=== PATIENT | female | born 1950 | race Caucasian/White ===

== ENCOUNTER 2019-07-03 12:47 | Outpatient (RCR) | payer MEDICARE, MEDICAID, SELFPAY ==
[2019-07-03 13:08] LABS: Alanine Aminotransferase 6 U/L (0-33); Alkaline Phosphatase 106 IU/L (35-105); Anion Gap 15.1 (5-19); Aspartate Amino Transferase 16 U/L (0-32); Blood Urea Nitrogen 14 mg/dL (8-23); Calcium 9.7 mg/Dl (8.8-10.2); Carbon Dioxide 28 mmol/L (22-29); Chloride 98 mmol/L (98-107); Globulin 2.9 g/dL (1.3-4.6); Glomerular Filtration Rate 82.7 mL/min (90-130); Glucose 96 mg/dL (74-106); Potassium 4.1 mmol/L (3.5-5.1); Sodium 137 mmol/L (136-145); Total Bilirubin 0.2 mg/dL (0.15-1.2); Total Protein 6.9 g/dL (6.6-8.7)
[2019-07-03 13:12] LABS: Basophils % 0.3 %; Eosinophils # 0.5 10^3/uL (0.0-0.8); Eosinophils % 5.1 %; Hematocrit 39.4 % (37.0-47.0); Hemoglobin 12.2 g/dL (11.5-15.3); Lymphocytes # 2.7 10^3/uL (0.8-4.8); Lymphocytes % 28.2 %; Mean Corpuscular Hemoglobin 29.5 pg (28.0-34.0); Mean Corpuscular Volume 95.4 fL (81-99); Mean Platelet Volume 10.6 fL (7.4-10.4); Monocytes # 0.7 10^3/uL (0.2-0.9); Monocytes % 7.6 %; Neutrophils # 5.6 10^3/uL (1.8-7.7); Neutrophils % 58.4 %; Nucleated Red Blood Cells % 0 %; Platelet Count 294 10^3/cmm (130-400); Red Blood Count 4.13 10^6/uL (4.1-5.3); Red Cell Distribution Width 13.4 % (12.1-15.1); White Blood Count 9.5 10^3/uL (4.0-10.0)
[2019-07-04 04:23] LABS: NT Pro B Type Natriuretic Pept 206 pg/mL (0-125)
== END 2019-07-19 23:59 | disposition home or self-care (01) ==
LOC: LAB 12:47
PROVIDERS: Dermatology; Family Provider Family Medicine; Visit Provider Physician Assistant
DX: J44.1 Chronic obstructive pulmonary disease with (acute) exacerbation (principal); I50.9 Heart failure, unspecified; E58 Dietary calcium deficiency; E61.2 Magnesium deficiency; F41.8 Other specified anxiety disorders; R41.9 Unspecified symptoms and signs involving cognitive functions and awareness; R52 Pain, unspecified
CPT/HCPCS: 80053; 83880; 85025

== ENCOUNTER 2019-11-14 13:07 | Outpatient (CLI) | payer MEDICARE, MEDICAID, SELFPAY ==
--- NOTE | 2019-11-14 | MR_ITS ---
WS: [id number] MRI LUMBAR SPINE NONCONTRAST HISTORY: FRACTURE VERTEBRA COMPARISON: 06/07/2015 CT. TECHNIQUE: Sagittal and axial multisequence imaging is submitted. Thoracolumbar scoliosis. Diffuse discogenic disease throughout the cervical and thoracic spines with scoliosis. Chronic anterior wedging of T3, T4, T8 and T11. Straightening of the normal lumbar lordosis with mild S-shaped scoliosis. Acute T12 compression fract ure. There is marrow edema in the majority of the vertebral bodies with biconcave defects along the e ndplates. No marrow edema in the posterior elements. No retropulsion. Remote fractures involving L1, L2 and very minimal anterior wedging of L5. Advanced degenerative changes throughout the facet joints and disc. L4 anterolisthesis by 2 mm. Conus terminates normally at L1-2 disc level. T12-L1: No stenosis. L1-L2: Diffuse osteophytic ridging and disc bulging. No significant stenosis. L2-L3: Diffuse osteophytic ridging. Very slight retropulsion of the inferior endplate of L2. Similar to prior studies. There is ligamentum flavum hypertrophy and facet arthritis. Mild LEFT foraminal cassandra nosis. L3-L4: Mild annular disc bulging. Moderate ligamentum flavum arthritis. Mild bilateral foraminal narr owing. L4-L5: Moderate annular disc bulging and osteophytic ridging with facet disease. Mild central and sub articular recess stenosis. Asymmetric disc bulging to the RIGHT with mild contact on the inferior L4 nerve root. L5-S1: Mild annular disc bulging with a RIGHT paracentral disc protrusion contacting the thecal sac a nd probably S1. Mild RIGHT and moderate LEFT foraminal stenosis. Prominent extrarenal pelvis on the RIGHT. MR/MR lumbar spine wo con* [id number] IMPRESSION: 1. Acute compression fracture involving T12 without retropulsion. Approximatel y 10-15% loss of height. 2. Severe multilevel degenerative changes throughout the lumbar spine. Multile kapil chronic compression deformities. Most significant at L2 by approximately 50 %. Progression of the fracture since 2014 but not acute. Similar to the prior r adiograph of 12/20/2017. 3. Moderate LEFT foraminal stenosis at L5-S1 with a small RIGHT paracentral di sc protrusion slightly contacts in the RIGHT S1 nerve root. 4. Mild central and subarticular recess stenosis at L4-5.
== END 2019-11-14 13:08 | disposition home or self-care (01) ==
LOC: RADSHAW 13:12
PROVIDERS: PCP Family Medicine; Visit Provider Physician Assistant
DX: M48.54XA Collapsed vertebra, not elsewhere classified, thoracic region, initial encounter for fracture (principal); M48.07 Spinal stenosis, lumbosacral region; M48.061 Spinal stenosis, lumbar region without neurogenic claudication; M53.3 Sacrococcygeal disorders, not elsewhere classified
CPT/HCPCS: 72148

== ENCOUNTER 2020-02-13 04:51 | Emergency (ER) | payer MEDICARE, MEDICAID, SELFPAY ==
[2020-02-13 04:51] VITALS: BP 129/87; PULSE 72; RESP 14; TEMP 36.5; O2SAT 89; BMI 24.7
--- NOTE | 2020-02-13 04:55 | ECG_ITS ---
[facility] Test Date: 2020-02-13 Pat Name: Adrianna Donaldson Department: Room: Gender: Female Natural Developer: : 1950 Requested By: Armond Salamanca Order Number: [id number] Roger MD: Ary Gardner M.D. Measurements Intervals [place] Rate: 105 P: 77 VA: 155 QRS: 23 QRSD: 68 T: 55 QT: 300 QTc: 397 Interpretive Statements SINUS TACHYCARDIA LOW QRS VOLTAGE IN PRECORDIAL LEADS Compared to ECG 08/05/2018 06:24:24 Sinus rhythm no longer present Myocardial infarct finding no longer present Electronically Signed On 02-14-2020 20:34:11 CDT by Ary Gardner M.D. [id number]
--- NOTE | 2020-02-13 04:55 | XR_ITS ---
WS: [id number] Portable AP upright chest, 02/13/2020 Clinical Data: sob Comparison: Portable chest, 08/10/2018. Findings: No nodules, masses or effusions are seen. The heart is normal. The pulmonary vascularity is not increased. No pneumonia or pneumothorax is seen. The aortic arch shows minimal calcification. XR/XR chest 1V portable [id number] Impression: Atherosclerosis.
--- NOTE | 2020-02-13 04:56 | W.ED.SOB ---
HPI - SOB/Dyspnea General: Chief Complaint: Shortness of Breath/Dyspnea Stated Complaint: SOB Time Seen by Provider: 02/13/20 04:55 Source: patient and EMS Mode of arrival: EMS Limitations: no limitations History of Present Illness: HPI Narrative: 69-year-old female who is here from the senior care. Patient states she started having palpitations and dyspnea at the senior care. She does have a history of SVT along with COPD. EMS arrived her heart rate was 180 and they gave her adenosine heart rate is now 110. She states she feels much improved since her heart rate is slowed down. Patient received a breathing treatment at senior care. She is a chronic smoker and states she wears 2 L at baseline. She denies any cough or fever. She denies any chest pain. Patient is able to talk in full sentences and is in no distress currently. Associated symptoms: Reports palpitations; Deny abdominal pain, fever(s), nausea or vomiting Review of Systems Const: Denies: fever(s), chills, body aches or change in appetite Eyes: Denies: blurry vision or eye discomfort ENMT: Denies: throat pain or dental pain Card: Reports: palpitations Resp: Reports: dyspnea and wheezing GI: Denies: abdominal pain, nausea, vomiting or diarrhea : Denies: dysuria Musc: Denies: neck pain or back pain Skin/Breast: Denies: rash Neuro: Denies: headache(s) Psych: Denies: depression Jose Elias/Lymph: Denies: easy bruising All/Imm: Denies: urticaria Physical Exam Const: COMMON NORMALS: no acute distress, patient oriented x3 and healthy appearing HENMT: COMMON NORMALS: normocephalic and atraumatic HEAD & SCALP: normocephalic and atraumatic Eye: COMMON NORMALS: Equal, round and reactive pupils present and EOMs intact bilaterally PUPIL: Yes Equal, round and reactive pupils present Neck/C-Spine: COMMON NORMALS: full ROM and supple Chest: COMMONS NORMALS: normal inspection of the chest and normal palpation of entire chest wall Resp: COMMON NORMALS: normal respiratory effort, No retractions and No use of accessory muscles EFFORT & INSPECTION: Yes audible wheezes (mild) Cardio: COMMON NORMALS: regular rhythm and No murmurs present (Cardio) RATE: tachycardic RHYTHM: regular rhythm GI: COMMON NORMALS: Normal to inspection, nondistended, normoactive bowel sounds present, Soft to palpation, non-tender and no masses PALPATION: Yes Soft to palpation Extremity: COMMON NORMALS: normal to inspection and full ROM Neuro: COMMON NORMALS: patient oriented x3, moves all extremities and no focal motor deficits Psych: COMMON NORMALS: mental status grossly normal, Normal thought process present and cooperative THOUGHT PROCESS: Normal thought process present Skin: COMMON NORMALS: no rashes or lesions noted and no wounds GENERAL SKIN EXAM: no rashes or lesions noted Course Vital Signs: Vital signs: Vital Signs Temperature 97.7 F 02/13/20 04:51 Pulse Rate 95 02/13/20 05:48 Respiratory Rate 18 02/13/20 05:43 Blood Pressure 129/87 02/13/20 04:51 Pulse Oximetry 97 02/13/20 05:43 MDM - SOB/Dyspnea MDM Narrative: Medical decision making narrative: Jonathan presents here with original SVT that was converted by EMS. Patient also has a likely bronchitis. Patient has been stable here with normal blood pressures. Patient has had no respiratory distress here. Patient's pulse ox is been normal. We will place her on a 5-day steroid course along with Keflex. She is stable for discharge and return if worsening. Lab Data: Labs: Lab Results 02/13/20 02/13/20 02/13/20 Range/Units 05:00 05:00 05:00 WBC 15.3 H (4.0-10.0) 10^3/ uL RBC 4.40 (4.1-5.3) 10^6/u L Hgb 12.7 (11.5-15.3) g/dL Hct 41.7 (37.0-47.0) % MCV 94.8 (81-99) fL MCH 28.9 (28.0-34.0) pg MCHC 30.5 (30.0-36.0) g/dL RDW 13.9 (12.1-15.1) % Plt Count 375 (130-400) 10^3/c mm MPV 10.7 H (7.4-10.4) fL Neut % (Auto) 54.1 % Lymph % (Auto) 34.9 % [place] % (Auto) 6.6 % Eos % (Auto) 3.8 % Baso % (Auto) 0.3 % Neut # (Auto) 8.28 H (1.8-7.7) 10^3/u L Lymph # (Auto) 5.3 H (0.8-4.8) 10^3/u L [place] # (Auto) 1.0 H (0.2-0.9) 10^3/u L Eos # (Auto) 0.6 (0.0-0.8) 10^3/u L Baso # (Auto) 0.1 (0.0-0.1) 10^3/u L Nucleated RBC % (a uto) 0 % Nucleated RBCs # 0.0 /100WBC PT 12.50 (12.1-14.9) SECO NDS INR 0.91 (0.8-1.2) Sodium 138 (136-145) mmol/L Potassium 4.7 (3.5-5.1) mmol/L Chloride 101 (98-107) mmol/L Carbon Dioxide 28 (22-29) mmol/L Anion Gap 13.7 (5-19) BUN 15 (8-23) mg/dL Creatinine 0.9 (0.5-0.9) mg/dL GFR Calculation Not Reportable Glucose 144 H (65-115) mg/dL Calculated Osmolal ity 285 (285-295) mOsm/k g Calcium 9.7 (8.5-10.5) mg/dL Total Bilirubin 0.2 (0.15-1.2) mg/dL AST 17 (0-32) U/L ALT 6 (0-33) U/L Alkaline Phosphata se 91 (35-105) IU/L NT-Pro-B Natriuret Pep 1597 H (0-125) pg/mL Total Protein 7.1 (6.6-8.7) g/dL Albumin 3.7 (3.5-5.2) g/dL Globulin 3.4 (1.3-4.6) g/dL Imaging Data^: CXR: Attestation: I personally reviewed and interpreted this imaging study as follows: My impression: no acute abnormality EKG Data^: EKG 1: Attestation: I personally reviewed and interpreted this EKG as follows: EKG Interpretation Date: 02/13/20 EKG interpretation time: 05:04 Interpretation: sinus tach hr [address] or t wave abnormalities qrs 68 qtc 361 Discharge Plan Discharge Patient Disposition: Home Clinical Impression: COPD exacerbation, SVT (supraventricular tachycardia) Condition: Stable Prescriptions: New Keflex 500 mg capsule 500 mg PO Q6H 7 Days Qty: 28 RF: 0 prednisone 50 mg tablet 50 mg PO DAILY Qty: 5 RF: 0 Discharge Orders: Discharge Order (Routine); Ordered 02/13/20 Ordered By: Armond Salamanca Referrals: Ismael Malcolm MD [Primary Care Provider] - 1-3 days Discharge Diet: Advance as tolerated Discharge Activity: Resume usual activity Patient Instructions: Supraventricular Tachycardia (ED), Chronic Obstructive Pulmonary Disease (ED) Coding Level of Care Code ED Pouncing Machine Operator for Chg Fwd Exam Comprehensive
[2020-02-13 05:37] LABS: INR 0.91 (0.8-1.2)
[2020-02-13 05:41] LABS: Basophils # 0.1 10^3/uL (0.0-0.1); Basophils % 0.3 %; Eosinophils # 0.6 10^3/uL (0.0-0.8); Eosinophils % 3.8 %; Hematocrit 41.7 % (37.0-47.0); Hemoglobin 12.7 g/dL (11.5-15.3); Lymphocytes # 5.3 10^3/uL (0.8-4.8); Lymphocytes % 34.9 %; Mean Corpuscular HGB Conc 30.5 g/dL (30.0-36.0); Mean Corpuscular Hemoglobin 28.9 pg (28.0-34.0); Mean Corpuscular Volume 94.8 fL (81-99); Mean Platelet Volume 10.7 fL (7.4-10.4); Monocytes % 6.6 %; Neutrophils # 8.28 10^3/uL (1.8-7.7); Neutrophils % 54.1 %; Nucleated Red Blood Cells % 0 %; Platelet Count 375 10^3/cmm (130-400); Red Cell Distribution Width 13.9 % (12.1-15.1); White Blood Count 15.3 10^3/uL (4.0-10.0)
[2020-02-13 05:43] VITALS: PULSE 97; RESP 18; O2SAT 97
[2020-02-13] MEDS: ipratropium-albuterol 3 mL Neb INHALATION (05:43)
[2020-02-13 05:48] VITALS: PULSE 95
[2020-02-13 05:53] LABS: Slide Review Slide Review Perform
[2020-02-13 05:55] LABS: Alanine Aminotransferase 6 U/L (0-33); Albumin Level 3.7 g/dL (3.5-5.2); Alkaline Phosphatase 91 IU/L (35-105); Aspartate Amino Transferase 17 U/L (0-32); Blood Urea Nitrogen 15 mg/dL (8-23); Calcium 9.7 mg/dL (8.5-10.5); Carbon Dioxide 28 mmol/L (22-29); Chloride 101 mmol/L (98-107); Globulin 3.4 g/dL (1.3-4.6); Glucose 144 mg/dL (65-115); NT Pro B Type Natriuretic Pept 1597 pg/mL (0-125); Osmolality Calculated 285 mOsm/kg (285-295); Sodium 138 mmol/L (136-145); Total Bilirubin 0.2 mg/dL (0.15-1.2); Total Protein 7.1 g/dL (6.6-8.7)
[2020-02-13 05:56] LABS: Anion Gap 13.7 (5-19); Potassium 4.7 mmol/L (3.5-5.1)
--- NOTE | 2020-02-13 06:12 | PC.NURSE ---
call to longterm spoke [facility] Informed him of patients dc and went over DC instructions, prescriptions and need for follow up with PCP in 1-3 days. all questions answered at this time. personnel coordinator setting up transfer back to longterm.
[2020-02-13 06:15] VITALS: BP 112/67; PULSE 95; RESP 20; O2SAT 97
== END 2020-02-13 06:40 | disposition home or self-care (01) ==
PROVIDERS: Emergency Provider Emergency Medicine; PCP Family Medicine
DX: J44.1 Chronic obstructive pulmonary disease with (acute) exacerbation (principal); I47.1 Supraventricular tachycardia; I70.0 Atherosclerosis of aorta
CPT/HCPCS: 12345; 71045; 80053; 83880; 85025; 85610; 93005; 94640; 96374; 99282; 99284; J2930

== ENCOUNTER → 2020-07-16 11:11 | Outpatient (BNVA) | payer MEDICARE, MEDICAID, SELFPAY | PROVIDERS: PCP Family Medicine; Visit Provider Obstetrics & Gynecology | DX: N89.8 Other specified noninflammatory disorders of vagina (principal); N95.0 Postmenopausal bleeding | CPT/HCPCS: 88305 ==

== ENCOUNTER 2020-10-26 13:17 | Outpatient (CLI) | payer MEDICARE, MEDICAID, SELFPAY ==
--- NOTE | 2020-10-27 08:13 | ONC CON_ITS ---
Dr. Lopez New Patient Note Patient: Adrianna Donaldson Unit #: [id number]: 1950 Dicatated By: Jason Lopez M.D.Date of Visit: October 26, 2020 Onc MED New Patient/Consult Referring Physician: Nate Hayes Dr., M.D. Chief Complaint: Vaginal cancer. 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 She had presented with a 1 to 2-year history of vaginal bleeding. She was seen by Dr. Fernando in June 2020. She was noted to have a palpable mass along the posterior vaginal wall. She was referred to Dr. Winston harding. On 09/18/2020 she underwent examination under anesthesia with proctoscopy, cystoscopy, excisional biopsy of the vaginal mass, cervical biopsy, and D&C. The exam revealed a normal palpable cervix above the posterior inferior and left lateral vaginal lesion which measured approximately 6 cm x 7-8 cm in the craniocaudal dimension. It was noted to extend to within 2 cm of the introitus and was noted to palpably involve the rectovaginal septum, but not the rectum. The proctoscopic exam was negative to 15 cm. Cystoscopy showed no lesions in the bladder. The posterior inferior vaginal wall lesion was excised but there was noted to be a significant amount of remaining disease involving the RV septum. Pathology on the vaginal wall lesion showed invasive poorly differentiated squamous cell carcinoma. The cervical biopsy showed chronically inflamed, ulcerated cervical tissue but with benign endocervical glands. The endometrial biopsy showed just minute fragments of bland epithelial cells. Her staging MRI of the pelvis on 09/18/2020 showed an asymmetric mass within the posterior vaginal wall measuring 1.9 x 4.5 x 3.7 cm. There was no infiltration into the perirectal soft tissues. A small enlarged lymph node was noted in the left perirectal fat measuring 0.6 x 0.4 cm. Other enlarged bilateral lymph nodes were noted along the pelvic sidewall, on the right side measuring up to 2.4 x 1.4 cm and on the left side measuring 3.2 x 1.9 cm. There was associated necrosis, concerning for metastatic disease. Also noted was partially seen retroperitoneal including left periaortic lymphadenopathy measuring 1.7 x 1.2 cm and 1.4 x 1.3 cm. Left iliac chain lymphadenopathy measured 1.8 x 1.3 cm and an additional enlarged lymph node measured up to 1.1 x 1.7 cm. She is seen for further management. She has underlying COPD, and she has been residing in a half-way due to complications following a right hip fracture in 2014. She underwent ORIF at the time, but she then had multiple subsequent hospitalizations related to her COPD as well as problems associated with alcohol abuse. In 2018 she was hospitalized with C. difficile colitis, and thereafter she remained in the half-way permanently. She does have very limited activity. She ambulates with a walker for short distances. She is mostly sedentary. Her ECOG score is 3. Her appetite is okay, she does complain that the food is not good at the half-way. Her weight, though, is stable. She does not have fever or night sweats. She says she has stopped bleeding following the surgery last month. She has shortness of breath, and she is on continuous oxygen. She is still smoking. She has cough which is occasionally productive of cloudy sputum. She does not complain of chest pain. She does have episodes of SVT. She has occasional acid reflux and recently she has had constipation. Bladder function has been okay, though she sometimes has incontinence. She has joint pain in her hands and in her hips. She has chronic back pain. She also has a history of having suffered a fractured pelvis. She does not complain of headache or dizziness. She sometimes has tingling in her feet. Past Medical History: Her medical history consists of Anemia, anxiety/depression, chronic obstructive pulmonary disease, gastroesophageal reflux disease, history of alcohol abuse, hypothyroidism, osteoporosis with vertebral compression fractures, and C. difficile colitis in 2018. Past Surgical History: She underwent exam under anesthesia, proctoscopy, cystoscopy, excisional vaginal biopsy, cervical biopsy, and D&C on 09/18/2020. Her other surgical/procedural history consists of bilateral cataract excisions, tubal ligation, ORIF for right hip fracture in 2014, and ORIF for left hip fracture in 2008. Medications: W87-Aqlbht 1 (1 mg) Tablet, chewable Oral daily, Bisacodyl 1 (10 mg) Suppository Rectal daily, Calcium-Vitamin D 1 (600-200 mg - Units) Tablet Oral daily, Chelated Calcium 1 (200 mg) Tablet Oral daily, Cyclobenzaprine HCl 1 (5 mg) Tablet Oral daily, Gabapentin 1 (300 mg) Capsule Oral t.i.d., Levalbuterol HCl 1 (1.25 mg/0.5mL) Nebulization solution Inhalation daily, Metoprolol Tartrate 1 (25 mg) Tablet Oral b.i.d., Ondansetron HCl 1 (4 mg) Tablet Oral q 4 hours, Prolia (60 mg/mL) Subcutaneous Take as Directed, traMADol HCl 1 (50 mg) Tablet Oral t.i.d., Trelegy Ellipta 1 Puff(s) (of 100-62.5-25 mcg/inh) Aerosol Powder, Breath Activated Inhalation daily, Ventolin HFA 2 Puff(s) (of 108 (90 base) mcg/act) Aerosol, solution Inhalation q 6 hours Allergies: sulfonylureas Social History: Ms. Donaldson is and she is a disabled. She has a history of smoking 1 pack of cigarettes daily. She has now cut down to 8 cigarettes per day. She has a history of dring a pint of vodka daily. She quit drinking when she went into the half-way. Family History: Father of heart attack at age 34. Mother with heart failure at age 90. A sister with sepsis at age 76. Review Of Symptoms: Constitutional - Her energy is not good. She has very limited activity. She can ambulate short distances with a walker. Her appetite has been okay. Her weight is stable. She does not have fever or night sweats. ECOG score is 3, Eyes - Her vision has been getting a little worse, ENMT - No hearing loss or tinnitus. No sinus congestion/drainage. No mouth sores. No sore throat or difficulty swallowing, Hematologic/Lymphatic - She has easy bruising. She has been anemic in the past, Respiratory - She has shortness of breath. She is on continuous oxygen. She has cough. It is just occasionally productive of cloudy sputum. No pleuritic pain or hemoptysis, Cardiovascular - No angina pain. She has episodes of SVT, Gastrointestinal - No nausea or vomiting. She occasionally has acid reflux. Recently she has had constipation. She has not been aware of blood in the stool or black stools, Genitourinary (F) - She has stopped bleeding since her surgery. She has some bladder incontinence, Musculoskeletal - She has joint pain in her hands and both hips. She also has back pain, Integumentary - No skin rash or other skin changes, Neurologic - No headache or dizziness. She has tingling in her feet. No other focal neurologic symptoms, Psychiatric - She has anxiety. No depression. She has difficulty sleeping. Vital Signs: Performed on October 26, 2020 14:39: 6, 0, 22.92, 1.61 sq.m, 63.00 in, 96 %, 98 /min, 20 /min, 102/66 mm(hg), 97.9 F (LOW), and 129.4 lbs (HIGH). Physical Examination: Constitutional - She appears chronically ill, Eyes - Sclerae nonicteric. Conjunctivae clear, ENMT - Mouth is dry. There are no lesions noted in the oral cavity, Neck - No mass or thyromegaly, Hematologic/Lymphatic - No cervical, clavicular, or axillary adenopathy, Respiratory - Lungs show diminished breath sounds bilaterally. There are scattered rales. There is slight expiratory wheezing, Cardiovascular - Heart rhythm is regular. There is no murmur, gallop, or rub noted, Abdomen - Soft and non-tender. Liver and spleen are not enlarged. There is no abdominal mass or ascites noted and there is no inguinal adenopathy, Back/Spine - No spine or CVA tenderness noted, Extremities - Slight edema. Both feet are cool to touch. I am not able to palpate pedal pulses, Integumentary - No rashes. No suspicious skin lesions noted, Neurologic - No focal neurologic deficits noted. Problem List: 1. Poorly differentiated squamous cell carcinoma of the vagina. By clinical evaluation, her disease is stage at least III (T2b, N1, M0) and possibly stage IV, depending on the status of the retroperitoneal lymph nodes. 2. COPD. 3. GERD. 4. Hypothyroidism. 5. Osteoporosis with vertebral compression fractures. 6. She has a history of anemia. 7. History of alcohol abuse. 8. History of C. difficile colitis. 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 By clinical evaluation, her disease is stage at least III (T2b, N1, M0) and possibly stage IV, depending on the status of the retroperitoneal lymph nodes. She will need to complete staging with PET/CT, I will get that scheduled, subject to verification of insurance coverage. Depending on the extent of her disease, she may be appropriate for treatment with chemoradiation as per the cervical cancer regimen. However, she does have very marginal performance status and at this point I am not certain she would be able to tolerate a combined modality regimen. If her disease appears to be more advanced by PET/CT, her treatment would be palliative, and we would have to work out an appropriate regimen for her. I have discussed this with Dr. Silverman, I will plan to arrange for radiation oncology consultation with him when the PET/CT results are available. In the meantime, I will request additional laboratory studies to be done at the half-way to include CBC, comprehensive metabolic profile, and serum iron studies. Signed By: Jason Lopez M.D. <<Signature on File>>
== END 2020-10-26 13:18 | disposition home or self-care (01) ==
PROVIDERS: PCP Family Medicine; Visit Provider Internal Medicine Medical Oncology
DX: C52 Malignant neoplasm of vagina (principal); J44.9 Chronic obstructive pulmonary disease, unspecified; K21.9 Gastro-esophageal reflux disease without esophagitis; E03.9 Hypothyroidism, unspecified; M81.0 Age-related osteoporosis without current pathological fracture; F10.11 Alcohol abuse, in remission; Z87.19 Personal history of other diseases of the digestive system; F17.210 Nicotine dependence, cigarettes, uncomplicated
CPT/HCPCS: 99205

== ENCOUNTER 2020-12-10 05:59 | Outpatient (RCR) | payer MEDICARE, MEDICAID, SELFPAY ==
--- NOTE | 2020-11-25 09:14 | N.ONRAD NP_ITS ---
Radiation Oncology Consultation Patient Name: Adrianna Donaldson Date of : 1950 Date of Service: 11/25/2020 Attending Physician: Nehemiah Silverman M.D. Jonathan Donaldson was seen in consultation this afternoon at the request of Jason Lopez M.D. for consideration of palliative radiotherapy for the management of a recently diagnosed vaginal cancer, He was initially evaluated by Antwan Weaver M.D. in August for vaginal bleeding. An initial pelvic exam identified a suburethral anterior vaginal wall lesion. An exam under anesthesia with excisional vaginal biopsy performed on September 18, 2020 confirmed the vaginal wall lesion with involvement of the rectovaginal septum. The biopsy specimen from the left inferior vaginal wall diagnosed an invasive poorly differential squamous cell carcinoma (the pathology report was requested from the outside hospital and personally reviewed in [facility]). A PET/CT ordered on October 31, 2020 (independently visualized in [facility]) demonstrated the vaginal primary carcinoma (SUV 21.8), extensive hypermetabolic bilateral pelvic adenopathy (left obturator, bilateral pelvic fossa, left common iliac, and right periaortic lymphadenopathy), bilateral FDG positive pulmonary nodules, and osseous lesions in the medial left scapula, 12th thoracic vertebral body, right ilium, sacrum, and posterior left acetabulum. A [employer] report revealed PD???L1 positivity with a low tumor mutational burden. The patient was evaluated for palliative radiotherapy in the setting of significant pelvic pain. I discussed with Ms. Donaldson the role for palliative radiotherapy. I would recommend a 2-week course of radiation therapy. A CT scan will be acquired for radiotherapy planning prior to beginning treatment to delineate the gross tumor volumes. The potential toxicities of pelvic radiotherapy were reviewed. The patient has verbalized understanding would like to proceed as recommended. Her medical treatment plan has been discussed with Jason Lopez M.D. Signed by: Dr. Nehemiah Silverman 11/25/2020 9:11:59 AM
--- NOTE | 2020-11-30 | CT_ITS ---
Radiation Therapy Planning CT images; total exam DLP: 1323.54 mGy-cm MTDD
--- NOTE | 2020-12-08 11:13 | ONCRAD TMN_ITS ---
Radiation Oncology Treatment Management Note Patient Name: Adrianna Donaldson Date of : 1950 Date of Service: 12/08/2020 Attending Physician: Nehemiah Silverman M.D. Adrianna Donaldson is a 70 year old white female diagnosed recently with metastatic vaginal cancer, A PET/CT ordered on October 31, 2020 demonstrated the vaginal primary carcinoma, extensive hypermetabolic bilateral pelvic adenopathy (left obturator, bilateral pelvic fossa, left common iliac, and right periaortic lymphadenopathy), bilateral FDG positive pulmonary nodules, and osseous lesions in the medial left scapula, 12th thoracic vertebral body, right ilium, sacrum, and posterior left acetabulum. The patient presents for palliative radiotherapy in the setting of significant back and pelvic pain. The patient has received 3 Gy of a prescribed 30 Willis to T12 and the pelvic disease with a 3-dimensional conformal radiotherapy plan utilizing a wedge pair treatment field designed for the T12 metastasis and AP/PA ports to include the PET avid primary and skeletal disease. Upon review of systems, she reported improvement in pain with prescription of oxycodone. On physical examination, the patient weighed 129 lbs. Her temperature was 97 ???F with a blood pressure of 96/66 mmHg. His pulse was 75 bpm and his respiratory rate was 20. No erythema was present within the skin. Continue palliative radiotherapy as prescribed. Signed by: Dr. Nehemiah Silverman 12/08/2020 11:12:26 AM
== END 2020-12-11 01:00 | disposition home or self-care (01) ==
LOC: ONCMED 05:59
PROVIDERS: PCP Family Medicine; Visit Provider Radiology Radiation Oncology
DX: Z51.0 Encounter for antineoplastic radiation therapy (principal); C52 Malignant neoplasm of vagina; C79.51 Secondary malignant neoplasm of bone; D64.9 Anemia, unspecified; Z79.899 Other long term (current) drug therapy
CPT/HCPCS: 77290; 77295; 77300; 77334; 77387; 77412; 99205

== ENCOUNTER 2020-12-11 01:24 | Inpatient (IN) | payer MEDICARE, MEDICAID, SELFPAY ==
[2020-12-11] VITALS (68 sets, daily range): BP systolic 67–122; BP diastolic 46–77; PULSE 88–142; RESP 15–28; TEMP 36.6–36.8; O2SAT 64–100; BMI 23.0
--- NOTE | 2020-12-11 01:27 | ECG_ITS ---
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 Measurements Intervals [place] Rate: 108 P: 82 IN: 155 QRS: 73 QRSD: 82 T: 23 QT: 307 QTc: 412 Interpretive Statements SINUS TACHYCARDIA WITH OCCASIONAL VENTRICULAR PREMATURE COMPLEXES LOW QRS VOLTAGE IN PRECORDIAL LEADS [QRS DEFLECTION < 1.0 mV IN CHEST LEADS] MODERATE ST DEPRESSION [0.05+ mV ST DEPRESSION] Compared to ECG 02/13/2020 05:04:31 Ventricular premature complex(es) now present ST (T wave) deviation now present Electronically Signed On 12-11-2020 14:14:33 CDT by Ary Gardner M.D. [id number]
--- NOTE | 2020-12-11 01:27 | XRR_ITS ---
PROCEDURE INFORMATION: Exam: XR Chest Exam date and time: 12/11/2020 1:27 AM Age: 70 years old Clinical indication: Shortness of breath; Patient HX: SOB and hypoxia. History of copd and lung cancer. TECHNIQUE: Imaging protocol: XR of the chest. Views: 1 view. COMPARISON: CR XR chest 1V portable [id number] 02/13/2020 4:52 AM FINDINGS: Lungs: There is a background of emphysema, bronchiectasis and bilateral basilar parenchymal scarring. Superimposed bilateral basilar atelectasis or infiltrates cannot be excluded. Pleural spaces: Unremarkable. No pleural effusion. No pneumothorax. Heart/Mediastinum: Unremarkable. No cardiomegaly. Bones/joints: Unremarkable. Soft tissues: Soft tissue density overlies the left lateral chest wall likely representing left upper extremity soft tissues. XR/XR chest 1V portable [id number] IMPRESSION: 1. Background of emphysema and bronchiectasis 2. Strandy opacities in the lung bases bilaterally likely represents atelectasis versus parenchymal scarring. Superimposed infiltrates and pneumonitis cannot be entirely excluded.
--- NOTE | 2020-12-11 01:44 | ED_ITS ---
HPI - SOB/Dyspnea General: Chief Complaint: Shortness of Breath/Dyspnea Stated Complaint: RESP. DISTRESS Time Seen by Provider: 12/11/20 01:27 Source: patient and EMS Mode of arrival: EMS Limitations: no limitations History of Present Illness: HPI Narrative: 70-year-old female who has a history of COPD group home stay tonight she was in distress but was able to talk in full sentences. I checked her pulse ox was 55%. When EMS arrived her pulse ox was actually on her fingernail american and when they switched it her pulse ox was 90% on her typical 3 L. Patient here states she had a mild cough but denies any dyspnea currently. She denies any chest pain. Denies any vomiting or diarrhea. Associated symptoms: Deny abdominal pain, chest pain, fever(s), nausea or vomiting Review of Systems Const: Denies: fever(s), chills, body aches or change in appetite Eyes: Denies: blurry vision or eye discomfort ENMT: Denies: throat pain or dental pain Card: Denies: chest pain Resp: Reports: dyspnea GI: Denies: abdominal pain, nausea, vomiting or diarrhea : Denies: dysuria Musc: Denies: neck pain or back pain Skin/Breast: Denies: rash Neuro: Denies: headache(s) Psych: Denies: depression Jose Elias/Lymph: Denies: easy bruising All/Imm: Denies: urticaria PFSH ED PFSH: Medical History (Updated 07/18/20 @ 14:39 by Sung Fernando MD) Anemia CHF (congestive heart failure) Chronic hip pain Compression fracture of thoracic vertebra COPD (chronic obstructive pulmonary disease) GERD (gastroesophageal reflux disease) Hypothyroidism Surgical History (Updated 07/18/20 @ 14:39 by Sung Fernando MD) S/P tubal ligation Status post hip surgery Bilateral. Diagnosis: Broken hips. Social History (Updated 07/17/20 @ 14:56 by Manuel Fernando) Smoking and tobacco status: current every day smoker cigarettes Packs smoked per day: 1 [ Other cigarette details: Started age 15 ] Alcohol intake: former Former alcohol use details: Daily before group home (3-4 years ago) Physical Exam Const: COMMON NORMALS: no acute distress, patient oriented x3 and healthy appearing HENMT: COMMON NORMALS: normocephalic and atraumatic HEAD & SCALP: normocephalic and atraumatic Eye: COMMON NORMALS: Equal, round and reactive pupils present and EOMs intact bilaterally PUPIL: Yes Equal, round and reactive pupils present Neck/C-Spine: COMMON NORMALS: full ROM and supple Chest: COMMONS NORMALS: normal inspection of the chest and normal palpation of entire chest wall Resp: COMMON NORMALS: normal respiratory effort, No retractions, No use of accessory muscles and clear to auscultation bilaterally AUSCULTATION: clear to auscultation bilaterally Cardio: COMMON NORMALS: regular rate, regular rhythm and No murmurs present (Cardio) RATE: regular rate RHYTHM: regular rhythm GI: COMMON NORMALS: Normal to inspection, nondistended, normoactive bowel sounds present, Soft to palpation, non-tender and no masses PALPATION: Yes Soft to palpation Extremity: COMMON NORMALS: normal to inspection and full ROM Neuro: COMMON NORMALS: patient oriented x3, moves all extremities and no focal motor deficits Psych: COMMON NORMALS: mental status grossly normal, Normal thought process present and cooperative THOUGHT PROCESS: Normal thought process present Skin: COMMON NORMALS: no rashes or lesions noted and no wounds GENERAL SKIN EXAM: no rashes or lesions noted Course Vital Signs: Vital signs: Vital Signs Temperature 97.8 F 12/11/20 01:28 Pulse Rate 95 12/11/20 02:15 Respiratory Rate 19 H 12/11/20 02:07 Blood Pressure 91/56 12/11/20 01:54 Pulse Oximetry 98 12/11/20 02:07 MDM - SOB/Dyspnea MDM Narrative: Medical decision making narrative: Jonathan presents here with cough dyspnea. She is requiring 3 to 4 L of oxygen here and is on 2 L oxygen at group home. Her BNP is quite elevated could be in a CHF exacerbation versus pneumonia. Per lab work she does appear slightly dehydrated as well with an elevated creatinine. I spoke the hospitalist will admit to the cardiac stepdown. Lab Data: Labs: Lab Results 12/11/20 12/11/20 12/11/20 Range/Units 01:37 01:37 01:37 WBC 11.4 H (4.0-10.0) 10^3/ uL RBC 3.74 L (4.1-5.3) 10^6/u L Hgb 10.4 L (11.5-15.3) g/dL Hct 35.1 L (37.0-47.0) % MCV 93.9 (81-99) fL MCH 27.8 L (28.0-34.0) pg MCHC 29.6 L (30.0-36.0) g/dL RDW 15.1 (12.1-15.1) % Plt Count 264 (130-400) 10^3/c mm MPV 10.8 H (7.4-10.4) fL Neut % (Auto) 81.5 % Lymph % (Auto) 9.4 % [place] % (Auto) 7.2 % Eos % (Auto) 0.5 % Baso % (Auto) 0.3 % Neut # (Auto) 9.31 H (1.8-7.7) 10^3/u L Lymph # (Auto) 1.1 (0.8-4.8) 10^3/u L [place] # (Auto) 0.8 (0.2-0.9) 10^3/u L Eos # (Auto) 0.1 (0.0-0.8) 10^3/u L Baso # (Auto) 0.0 (0.0-0.1) 10^3/u L Nucleated RBC % (a uto) 0 % Nucleated RBCs # 0.0 /100WBC Sodium 132 L (136-145) mmol/L Potassium 5.8 H (3.5-5.1) mmol/L Chloride 88 L (98-107) mmol/L Carbon Dioxide 29 (22-29) mmol/L Anion Gap 20.8 H (5-19) BUN 34 H (8-23) mg/dL Creatinine 2.1 H (0.5-0.9) mg/dL GFR Calculation Not Reportable Glucose 101 (65-115) mg/dL Calculated Osmolal ity 282 L (285-295) mOsm/k g Lactate 3.5 H (0.5-2.2) mmol/L Calcium 9.9 (8.5-10.5) mg/dL Total Bilirubin 0.3 (0.15-1.2) mg/dL AST 38 H (0-32) U/L ALT < 5 (0-33) U/L Alkaline Phosphata se 90 (35-105) IU/L NT-Pro-B Natriuret Pep 33950 H (0-125) pg/mL Total Protein 7.4 (6.6-8.7) g/dL Albumin 3.4 L (3.5-5.2) g/dL Globulin 4.0 (1.3-4.6) g/dL Imaging Data^: CXR: Attestation: I personally reviewed and interpreted this imaging study as follows: Radiologist's impression: [address] [address] XRay Report Signed Patient: Adrianna Donaldson Unit #: [id number] : 1950 Age/Sex: 70 / F ADM Date: 12/11/20 Loc: ER Room/Bed: Attending Dr: Ordering Provider/Ordering MD: Armond Salamanca MD Date of Service: 12/11/20 Procedure(s): XR chest 1V portable [id number] Accession Number(s): [id number] Report Number: [id number] PROCEDURE INFORMATION: Exam: XR Chest Exam date and time: 12/11/2020 1:27 AM Age: 70 years old Clinical indication: Shortness of breath; Patient HX: SOB and hypoxia. History of copd and lung cancer. TECHNIQUE: Imaging protocol: XR of the chest. Views: 1 view. COMPARISON: CR XR chest 1V portable [id number] 02/13/2020 4:52 AM FINDINGS: Lungs: There is a background of emphysema, bronchiectasis and bilateral basilar parenchymal scarring. Superimposed bilateral basilar atelectasis or infiltrates cannot be excluded. Pleural spaces: Unremarkable. No pleural effusion. No pneumothorax. Heart/Mediastinum: Unremarkable. No cardiomegaly. Bones/joints: Unremarkable. Soft tissues: Soft tissue density overlies the left lateral chest wall likely representing left upper extremity soft tissues. XR/XR chest 1V portable [id number] IMPRESSION: 1. Background of emphysema and bronchiectasis 2. Strandy opacities in the lung bases bilaterally likely represents atelectasis versus parenchymal scarring. Superimposed infiltrates and pneumonitis cannot be entirely excluded. EKG Data^: EKG 1: Attestation: I personally reviewed and interpreted this EKG as follows: EKG Interpretation Date: 12/11/20 EKG interpretation time: 01:48 Interpretation: nsr hr [address] or t wave abnormalities qrs 67 qtc 357 Discharge Plan Discharge Prescriptions: No Action bisacodyl 10 mg suppository 10 mg GA DAILY PRNRF: 0 magnesium hydroxide [Milk of Magnesia] 400 mg/5 mL suspension 30 ml PO DAILY PRNRF: 0 levalbuterol HCl 1.25 mg/3 mL solution for nebulization 1.25 mg inhalation Q6H PRNRF: 0 albuterol sulfate [Ventolin HFA] 90 mcg/actuation HFA aerosol inhaler 2 puff inhalation Q6H RF: 0 calcium carbonate [Antacid (calcium carbonate)] 200 mg calcium (500 mg) tablet,chewable 400 mg PO Q4H PRNRF: 0 ondansetron HCl [Zofran] 4 mg tablet 4 mg PO Q8H PRNRF: 0 acetaminophen [Tylenol] 325 mg capsule 650 mg PO Q6H PRNRF: 0 cyclobenzaprine 5 mg tablet 5 mg PO Q8H PRNRF: 0 Prolia 60 mg/mL syringe 60 mg SUBCUT .COMPLEX RF: 0 multivitamin Tablet 1 tab PO DAILY RF: 0 Trelegy Ellipta 100-62.5-25 mcg blister with device 1 inh inhalation DAILY RF: 0 cyanocobalamin (vitamin B-12) 1,000 mcg capsule 1,000 mcg PO DAILY RF: 0 gabapentin 300 mg capsule 300 mg PO TID RF: 0 calcium carbonate-vitamin D3 600 mg(1,500mg) -400 unit capsule 2 cap PO DAILY RF: 0 metoprolol tartrate 25 mg tablet 25 mg PO BID RF: 0 Coding Level of Care Code ED Radio Division Lieutenant for Chg Fwd Exam Comprehensive
[2020-12-11 01:49] LABS: Basophils % 0.3 %; Eosinophils # 0.1 10^3/uL (0.0-0.8); Eosinophils % 0.5 %; Hematocrit 35.1 % (37.0-47.0); Hemoglobin 10.4 g/dL (11.5-15.3); Lymphocytes # 1.1 10^3/uL (0.8-4.8); Lymphocytes % 9.4 %; Mean Corpuscular HGB Conc 29.6 g/dL (30.0-36.0); Mean Corpuscular Hemoglobin 27.8 pg (28.0-34.0); Mean Corpuscular Volume 93.9 fL (81-99); Mean Platelet Volume 10.8 fL (7.4-10.4); Monocytes # 0.8 10^3/uL (0.2-0.9); Monocytes % 7.2 %; Neutrophils # 9.31 10^3/uL (1.8-7.7); Neutrophils % 81.5 %; Nucleated Red Blood Cells % 0 %; Platelet Count 264 10^3/cmm (130-400); Red Blood Count 3.74 10^6/uL (4.1-5.3); Red Cell Distribution Width 15.1 % (12.1-15.1); White Blood Count 11.4 10^3/uL (4.0-10.0)
[2020-12-11] MEDS: sodium chloride 0.9% 1,000 ML 999 ML IV (01:56)
[2020-12-11] MEDS: ipratropium-albuterol 3 mL Neb INHALATION ×4 (02:07→20:02)
[2020-12-11 02:09] LABS: Lactate (Lactic Acid level) 3.5 mmol/L (0.5-2.2)
[2020-12-11 02:19] LABS: Alanine Aminotransferase < 5 U/L (0-33); Albumin Level 3.4 g/dL (3.5-5.2); Alkaline Phosphatase 90 IU/L (35-105); Anion Gap 20.8 (5-19); Aspartate Amino Transferase 38 U/L (0-32); Blood Urea Nitrogen 34 mg/dL (8-23); Calcium 9.9 mg/dL (8.5-10.5); Carbon Dioxide 29 mmol/L (22-29); Chloride 88 mmol/L (98-107); Glucose 101 mg/dL (65-115); NT Pro B Type Natriuretic Pept 21714 pg/mL (0-125); Osmolality Calculated 282 mOsm/kg (285-295); Potassium 5.8 mmol/L (3.5-5.1); Sodium 132 mmol/L (136-145); Total Bilirubin 0.3 mg/dL (0.15-1.2); Total Protein 7.4 g/dL (6.6-8.7)
--- NOTE | 2020-12-11 03:01 | P.HP_ITS ---
Providers/Chief Complaint Primary Care Provider: Ismael Malcolm MD Chief Complaint: RESP. 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 Patient is stating that around 6 PM she start experiencing shortness of breath which she is describing as labored breathing, she is denying fever, chest pain, diarrhea. She is endorsing dysuria, productive cough and chest congestion. She uses 2 L of oxygen [id number]. She is denying rhinorrhea, runny eyes. Pulse ox at the half-way was showing O2 saturation around 50% however nail greenlandic was not removed. She was sent to the ER for further evaluation. In the ER nail greenlandic was removed O2 saturation was above 90% on 2 L nasal cannula, she had mild leukocytosis with tachycardia and high lactic acid she was given ceftriaxone and azithromycin for possible pneumonia and 2 L normal saline for hypotension her systolic blood pressure was in the low 90s. Requested urinalysis and CT chest abdomen pelvis with contrast along procalcitonin and D- dimer Review of Systems Const: Reports: chills, body aches and fatigue Eyes: Denies: change in vision ENMT: Denies: throat pain Card: Reports: dyspnea on exertion Resp: Reports: dyspnea and productive cough GI: Denies: abdominal pain : Reports: difficulty voiding and dysuria; Denies: flank pain Musc: Denies: neck pain Skin/Breast: Denies: rash Neuro: Denies: headache(s) Psych: Reports: depression; Denies: anxiety Endo: Denies: polyuria Jose Elias/Lymph: Denies: easy bruising All/Imm: Denies: urticaria Medications/Allergies Home Medications Medication Instructions Recorded Confirmed Last Taken Type acetaminophen 325 mg capsule 650 mg PO Q6H PRN cap 07/16/20 07/16/20 Unknown History albuterol sulfate 90 mcg/actuation 2 puff INHALATION Q6H 07/16/20 07/16/20 Unknown History aerosol inhaler bisacodyl 10 mg rectal suppository 10 mg DC DAILY PRN 07/16/20 07/16/20 Unknown History calcium carbonate 200 mg calcium 400 mg PO Q4H PRN tab 07/16/20 07/16/20 Unknown History (500 mg) chewable tablet calcium carbonate-vitamin D3 600 2 cap PO DAILY cap 07/16/20 07/16/20 Unknown History mg (1,500 mg)-400 unit capsule cyanocobalamin (vitamin B-12) 1,000 mcg PO DAILY 07/16/20 07/16/20 Unknown History 1,000 mcg capsule cyclobenzaprine 5 mg tablet 5 mg PO Q8H PRN tab 07/16/20 07/16/20 Unknown History denosumab 60 mg/mL subcutaneous 60 mg SUBCUT .COMPLEX ml 07/16/20 07/16/20 Unknown History syringe fluticasone fur. 100 mcg-umeclid 1 inh INHALATION DAILY 07/16/20 07/16/20 Unknown History 62.5 mcg-vilant 25 mcg inhalat.powder gabapentin 300 mg capsule 300 mg PO TID 07/16/20 07/16/20 Unknown History levalbuterol HCl 1.25 mg/3 mL 1.25 mg INHALATION Q6H PRN ml 07/16/20 07/16/20 Unknown History solution for nebulization magnesium hydroxide 400 mg/5 mL 30 ml PO DAILY PRN ml 07/16/20 07/16/20 Unknown History oral suspension metoprolol tartrate 25 mg tablet 25 mg PO BID 07/16/20 07/16/20 Unknown History multivitamin 1 tab PO DAILY 07/16/20 07/16/20 Unknown History ondansetron HCl 4 mg tablet 4 mg PO Q8H PRN 07/16/20 07/16/20 Unknown History Allergies Allergy/AdvReac Type Severity Reaction Status Date / Time Sulfa (Sulfonamide Allergy ALGY-Rash Verified 07/16/20 10:18 Antibiotics) PFSH Acute PFSH: Medical History Anemia CHF (congestive heart failure) Chronic hip pain Compression fracture of thoracic vertebra COPD (chronic obstructive pulmonary disease) GERD (gastroesophageal reflux disease) Hypothyroidism Vaginal cancer Surgical History S/P tubal ligation Status post hip surgery Bilateral. Diagnosis: Broken hips. Social History Smoking and tobacco status: current every day smoker cigarettes Packs smoked per day: 1 [ Other cigarette details: Started age 15 ] Alcohol intake: former Former alcohol use details: Daily before half-way (3-4 years ago) Vitals/I&O/Wt Last Vital Signs Temp 97.8 F 12/11/20 01:28 Pulse 95 12/11/20 02:15 Resp 19 H 12/11/20 02:07 BP 91/56 12/11/20 01:54 Pulse Ox 98 12/11/20 02:07 Weight last 48 hrs Weight 58.967 kg Physical Exam Narrative: EXAM NARRATIVE: elderly female who appears stated age, clinically looks dehydrated Laying comfortably in her bed saturating well on 2 L nasal cannula S1, S2 sinus rhythm no murmur appreciated Abdomen soft nontender bowel sound present Lower extremity no edema gangrene or ulcer Awake alert oriented x3 GCS 15 no neurological deficits, EOMI, PERRLA No joint swelling Bilateral breath sounds without adventitious rhonchi or crackles, diminished airflow Appropriate mood and affect Cooperative and pleasant during my evaluation Data : 12/11/20 01:37 12/11/20 01:37 A&P Assessment and plan (1) Sepsis: Status: Acute (2) UTI (urinary tract infection): Status: Acute (3) ONEL (acute kidney injury): Status: Acute (4) Hyperkalemia: Status: Acute Additional A&P Information Sepsis Criteria met with tachycardia, leukocytosis and lactic acidemia Patient does have chest congestion, chest imaging is revealing atelectasis, requested procalcitonin and urinalysis, patient is endorsing dysuria CT abdomen/pelvis is showing perinephric stranding, I would keep her on ceftriaxone for now Continue normal saline, received 2 L of normal saline in the ER current blood pressure 91/59 mmHg Currently saturating 92% on 2 L nasal cannula Her D-dimer would not be considered high compared to her age and history of vaginal cancer, she is saturating well at baseline oxygen supplementation, however initially EKG showed sinus tachycardia, request VQ scan DuoNeb every 4 as needed Requested blood and urine culture ONEL with hyperkalemia Clinically looks dehydrated continue normal saline fluid resuscitation, hold nephrotoxic agents, Considering high creatinine I would also hold cyclobenzaprine She has high BNP however clinically looks extremely dehydrated chest x-ray does not show fluid overload signs Sinus rhythm on EKG We will give her calcium gluconate and Kayexalate, insulin and D50 Full code Cardiac diet DVT prophylaxis Heparin Attestations Medical Necessity Statement*: Anticipating stay in the hospital cross more than 2 midnights for sepsis, UTI Time Spent in Patient Care: 35mins Coding Level of Care Code Acute Seam Rubber for Chg Fwd Diagnoses Sepsis A41.9 UTI (urinary tract infection) N39.0 ONEL (acute kidney injury) N17.9 Hyperkalemia E87.5
--- NOTE | 2020-12-11 03:20 | CTR_ITS ---
PROCEDURE INFORMATION: Exam: CT Chest Without Contrast; Diagnostic Exam date and time: 12/11/2020 3:20 AM Age: 70 years old Clinical indication: Shortness of breath; Prior surgery; Surgery type: Tubal ligation. Bilat hips. ; Patient HX: Hypoxia and dysuria. History of chf. No contrast given due to creatinine over 2.0. ; Additional info: Hypoxia/dysuria TECHNIQUE: Imaging protocol: Diagnostic computed tomography of the chest without contrast. Radiation optimization: All CT scans at this facility use at least one of these dose optimization techniques: automated exposure control; mA and/or kV adjustment per patient size (includes targeted exams where dose is matched to clinical indication); or iterative reconstruction. COMPARISON: CR (CHEST, ) 12/11/2020 1:25 AM RADIATION DOSE METRICS: Total DLP (mGy-cm): 1310.03 FINDINGS: Lungs: There are calcifications of the tracheobronchial tree. Numerous pulmonary nodularities are seen within the hemithoraces bilaterally, most numerous within the upper lobes measuring up to 8 5 mm. There are hazy opacities present in the right lower lobe posteriorly possibly representing atelectasis although a right basilar infiltrate and pneumonia cannot be excluded. Pleural spaces: Unremarkable. No pneumothorax. No pleural effusion. Heart: Calcifications are seen in the coronary arteries. Mediastinal space: There is a small hiatal hernia present. Aorta: Unremarkable. No aortic aneurysm. Great vessels off aortic arch: Calcifications are seen within the great vessels and thoracic aorta. Lymph nodes: There are small mediastinal lymph nodes seen that are below CT criteria for lymphadenopathy. The largest is seen in the aortopulmonic region measuring approximately 8.7 mm transverse dimension. Bones/joints: There is moderate compression of the T12 vertebral body. Soft tissues: Unremarkable. IMPRESSION: 1. There are small mediastinal lymph nodes seen that are below CT criteria for lymphadenopathy. 2. Small hiatal hernia 3. Numerous pulmonary nodularities are present predominately within the upper lobes bilaterally, the largest measuring up to 8.5 mm. For patients at low risk (minimal or absent history of smoking and of other known risk factors), recommend CT Chest at 3-6 months, then consider CT Chest at 18-24 months. For patients at high risk (history of smoking or of other known risk factors), recommend CT Chest at 3-6 months, then CT Chest at 18-24 months. (Reference: Cristina) 4. Hazy opacities in the right lower lobe may represent atelectasis although a right basilar infiltrate and pneumonia cannot be entirely excluded. REFERENCES: Cristina Collins et al. Guidelines for Management of Incidental Pulmonary Nodules Detected on CT Images: From the Fleischner Society 2017. Radiology. 2017;284(1):228-243. PROCEDURE INFORMATION: Exam: CT Abdomen And Pelvis Without Contrast Exam date and time: 12/11/2020 3:20 AM Age: 70 years old Clinical indication: Shortness of breath; Prior surgery; Surgery type: Tubal ligation. Bilat hips. ; Patient HX: Hypoxia and dysuria. History of chf. No contrast given due to creatinine over 2.0. ; Additional info: Hypoxia/dysuria TECHNIQUE: Imaging protocol: Computed tomography of the abdomen and pelvis without contrast. Radiation optimization: All CT scans at this facility use at least one of these dose optimization techniques: automated exposure control; mA and/or kV adjustment per patient size (includes targeted exams where dose is matched to clinical indication); or iterative reconstruction. COMPARISON: CR (CHEST, ) 12/11/2020 1:25 AM RADIATION DOSE METRICS: Total DLP (mGy-cm): 1310.03 FINDINGS: Liver: Normal. No mass. Gallbladder and bile ducts: Hyperdensities are seen within the gallbladder lumen compatible with small gallstones. Pancreas: Normal. No ductal dilation. Spleen: Normal. No splenomegaly. Adrenal glands: Normal. No mass. Kidneys and ureters: Strandy opacities are seen in the perinephric fascia bilaterally most probably representing chronic scarring. Stomach and bowel: Unremarkable. No obstruction. No mucosal thickening. Appendix: No evidence of appendicitis. Intraperitoneal space: Unremarkable. No free air. No significant fluid collection. Vasculature: There are calcifications of the abdominal aorta, iliac and femoral arteries bilaterally. Lymph nodes: Unremarkable. No enlarged lymph nodes. Urinary bladder: Unremarkable as visualized. Reproductive: Unremarkable as visualized. Bones/joints: Status post gamma nailing of right hip and placement of a compression screw and buttress plate in the proximal left femur. There are compression fractures L1-L3 vertebral bodies, most severe within the L2 vertebral body. Soft tissues: Unremarkable. CT/CT chest abd pel wo con IMPRESSION: 1. Multiple gallstones without evidence of cholecystitis 2. There are no acute abdominal findings Radiation Dose CTDIVOL = (mGy): DLP = 1310.03~1310.03 (mGy-cm)
[2020-12-11 03:44] LABS: D Dimer 0.82 ug/mIFEU (0-0.59)
[2020-12-11 03:45] LABS: Procalcitonin 0.57 ng/mL (0-0.5)
--- NOTE | 2020-12-11 04:38 | NM_ITS ---
WS: [id number] NUCLEAR MEDICINE VENTILATION/PERFUSION LUNG SCAN HISTORY: High D-dimer, hypoxia COMPARISON: Chest CT 12/11/2020 TECHNIQUE: Ventilation: 32.4 mCi of Technetium 99 DTPA aerosol inhaled. Perfusion: 4.7 mCi of technetium 99m MAA IV. Severe heterogeneity on the ventilatory portion of the examination. Multiple foci of deposition and d eposition also within the upper GI tract. Slightly better perfusion as compared to the ventilatory po rtion. There are multiple filling defects. Some of these filling defects are larger and some are smal ler than the matching areas on the ventilatory portion. This is essentially nondiagnostic examination due to patient's underlying lung disease. NM/NM pul vent and perfus* [id number] IMPRESSION: Indeterminate and essentially nondiagnostic evaluation for pulmonary embolism b y VQ scan. Nondiagnostic evaluation is due to significant underlying chronic geovanna ng disease. There are multiple areas of matched and minimally unmatched defects . Majority of these defects are matched and related to emphysema.
--- NOTE | 2020-12-11 04:38 | USCV_ITS ---
Adrianna Donaldson Age: 70 Gender: F : 1950 Exam Date: 12/11/2020 14:04 Ordering Phys: Nolvia Katz MD Technologist: Gilberto Melgar Exam Location: [facility] [place] Indication: evaluate EF, post code, copd BP: / HR: Rhythm: Sinus Technical Quality: non diagnostic, no windows MEASUREMENTS (Male / Female) Normal Values FINDINGS Left Ventricle Technically very difficult study. Could not properly visualize the ventricle. Right Ventricle Right Atrium Left Atrium Mitral Valve Aortic Valve Tricuspid Valve Pulmonic Valve Pericardium Aorta CONCLUSIONS Technically difficult study Could not properly visualize the left ventricle to estimate the ejection fraction. Consider contrast echo Dr Aj Jaramillo MD FAC (Electronically Signed) Final Date: 11 December 2020 16:47 S
[2020-12-11] MEDS: cefTRIAXone 1,000 MG in sodium chloride 0.9% (plus) 50 ML 100 MG IV ×2 (05:21→08:54)
[2020-12-11] MEDS: heparin 5,000 unit/mL INJ 1 mL 5000 UNIT SUBCUT ×3 (05:23→20:47)
[2020-12-11] MEDS: sodium chloride 0.9% 1,000 ML 100 ML IV ×2 (05:23→08:51)
--- NOTE | 2020-12-11 08:08 | ANES.PROC ---
Anesthesia Procedures Procedure/Date: 12/11/20 Other Information: Code Blue in progress. IUDV X 1 with + ETCO2 et BBS =. Dr Morales present and compressions being administered
[2020-12-11] MEDS: midazolam 1 mg/mL INJ 2 mL 2 MG IVP (08:27)
[2020-12-11 08:43] LABS: ABG PH Result 7.27 (7.35-7.45); Alveolar-Arterial Oxygen Gradi 16.5 mmHg (5-10); Arterial Blood Gas Hematocrit 29.4 % (37-47); Base Excess ABG 5.2 mmol/L (-2.0-2.0); Blood Gas Allen Test Pos; Blood Gas Sample Site Brachial, right; Blood Gas Sample Type Arterial; Carboxyhemoglobin 0.4 %THgb (0.4-20.1); HCO3 ABG 33.6 mmol/L (22-26); HGB O2 Sat 99.3 % (95-100); Ionized Calcium Level - ABG 1.5 mmol/L (1.1-1.4); Methemoglobin 0.5 % (0.4-1.5); Oxygen Device VENT; Oxygen Saturation ABG > 100.0; Potassium Level - ABG 5.1 mmol/L (3.5-5.0); Total Hemoglobin 9.6 g/dL (12-16)
[2020-12-11] MEDS: midazolam 1 mg/mL INJ 2 mL 2 MG (08:47)
[2020-12-11 08:48] LABS: ABG PCO2 73.7 mmHg (35-45)
[2020-12-11 09:07] LABS: Basophils % 0.2 %; Hematocrit 33.1 % (37.0-47.0); Hemoglobin 9.6 g/dL (11.5-15.3); Lymphocytes # 0.5 10^3/uL (0.8-4.8); Lymphocytes % 2.8 %; Mean Corpuscular Volume 96.5 fL (81-99); Mean Platelet Volume 10.4 fL (7.4-10.4); Monocytes # 0.2 10^3/uL (0.2-0.9); Monocytes % 1.2 %; Neutrophils # 15.85 10^3/uL (1.8-7.7); Neutrophils % 94.2 %; Nucleated Red Blood Cells % 0 %; Platelet Count 221 10^3/cmm (130-400); Red Blood Count 3.43 10^6/uL (4.1-5.3); Red Cell Distribution Width 15.3 % (12.1-15.1); White Blood Count 16.8 10^3/uL (4.0-10.0)
[2020-12-11 09:27] LABS: Alanine Aminotransferase 11 U/L (0-33); Albumin Level 2.9 g/dL (3.5-5.2); Alkaline Phosphatase 82 IU/L (35-105); Aspartate Amino Transferase 40 U/L (0-32); Blood Urea Nitrogen 31 mg/dL (8-23); Calcium 10.4 mg/dL (8.5-10.5); Carbon Dioxide 26 mmol/L (22-29); Chloride 91 mmol/L (98-107); Globulin 3.7 g/dL (1.3-4.6); Glucose 197 mg/dL (65-115); Magnesium 1.8 mg/dL (1.7-2.3); Osmolality Calculated 288 mOsm/kg (285-295); Sodium 133 mmol/L (136-145); Total Bilirubin 0.2 mg/dL (0.15-1.2); Total Protein 6.6 g/dL (6.6-8.7)
[2020-12-11 09:29] LABS: Anion Gap 21.3 (5-19); Potassium 5.3 mmol/L (3.5-5.1)
--- NOTE | 2020-12-11 11:53 | PC.NURSE ---
received from ist floor post code this am around 0800 monitor vs intubated and on vent at this time fentynl and versed infusing and titrated for sedation
[2020-12-11 13:03] LABS: Add Urine Microscopic? YES; Bilirubin Urine Neg (Negative); Blood Urine 3+ (Negative); Glucose Urine UA Trace (Normal); Ketones Urine 1+ (Negative); Leukocyte Esterase Urine Negative (Negative); Nitrate Urine Negative (Negative); Protein Urine Trace (Negative); Specific Gravity, Urine 1.025 (1.005-1.030); Urine Appearance Clear (CLEAR); Urine Color Yellow (Yellow); Urobilinogen Urine Norm (Negative); pH Urine 5 (5-7)
--- NOTE | 2020-12-11 13:04 | PM.PN ---
Subjective Subjective: Interval history: Patient experienced sudden cardiac arrest, while undergoing VQ scan.During the code she received 2 epi, 1 amp of bicarb.It Was a PEA arrest.High-quality chest compressions was done.Patient was intubated during the code. ROSC was achieved. Postcode she was on Versed and fentanyl, as well as Levophed as she was Hypotensive. Post code Labs were ordered.( CBC, CMP, Blood culture,ABG, EKG, Troponin ) Abx Coverage was broadened. Medications: Reviewed: Yes Vitals/I&O/Wt Last Vital Signs Temp 97.8 F 12/11/20 04:29 Pulse 101 H 12/11/20 11:00 Resp 15 12/11/20 12:04 BP 80/58 12/11/20 11:00 Pulse Ox 98 12/11/20 12:04 12/10/20 12/11/20 12/11/20 22:59 06:59 14:59 Intake Total 1000 / 1000 446.667 / 446.667 Balance 1000 / 1000 446.667 / 446.667 Weight last 48 hrs Weight 58.967 kg Physical Exam Narrative: EXAM NARRATIVE: Currently intubated and sedated,off sedation her GCS is 8T HENMT: COMMON NORMALS: normocephalic and atraumatic HEAD & SCALP: normocephalic and atraumatic Resp: OTHER: Bilateral coarse breath sounds, diminished at bases Cardio: COMMON NORMALS: regular rate, regular rhythm, S1 normal heart sound present, S2 normal heart sound present, No gallops present (Cardio), No murmurs present (Cardio), No rub (Cardio) and Peripheral pulses 2+ throughout RATE: regular rate RHYTHM: regular rhythm HEART SOUNDS: S1 normal heart sound present and S2 normal heart sound present PERIPHERAL PULSES: Peripheral pulses 2+ throughout GI: COMMON NORMALS: Normal to inspection, nondistended, normoactive bowel sounds present, Soft to palpation, non-tender, No hepatosplenomegaly present and no masses AUSCULTATION: Yes normoactive bowel sounds PALPATION: Yes Soft to palpation and Yes No hepatosplenomegaly present RECTAL EXAM: deferred Data : 12/11/20 08:59 12/11/20 08:59 Micro: Microbiology 12/11/20 11:30 Legionella Urinary Antigen - Final Urine,Clean Catch Bacterial Antigens - Final 12/11/20 06:49 Blood Culture - Preliminary Blood SPECIMEN COLLECTED 12/11/20 06:40 Blood Culture - Preliminary Blood SPECIMEN COLLECTED A&P Assessment and plan (1) Sudden cardiac arrest: S/P Cardiac Arrest. Patient experienced sudden cardiac arrest, while undergoing VQ scan.During the code she received 2 epi, 1 amp of bicarb.It Was a PEA arrest.High-quality chest compressions was done.Patient was intubated during the code. ROSC was achieved. Postcode she was on Versed and fentanyl, as well as Levophed as she was Hypotensive. Post code Labs were ordered.( CBC, CMP, Blood culture,ABG, EKG, Troponin ) Abx Coverage was broadened. Status: Acute (2) Sepsis: Status: Acute (3) UTI (urinary tract infection): Status: Acute (4) ONEL (acute kidney injury): Status: Acute (5) Hyperkalemia: Status: Acute Additional A&P Information Sepsis Criteria met with tachycardia, leukocytosis and lactic acidemia Patient does have chest congestion, chest imaging is revealing atelectasis, requested procalcitonin and urinalysis, patient is endorsing dysuria CT abdomen/pelvis is showing perinephric stranding, I would keep her on ceftriaxone for now Continue normal saline, received 2 L of normal saline in the ER current blood pressure 91/59 mmHg Currently saturating 92% on 2 L nasal cannula Her D-dimer would not be considered high compared to her age and history of vaginal cancer, she is saturating well at baseline oxygen supplementation, however initially EKG showed sinus tachycardia, request VQ scan DuoNeb every 4 as needed Requested blood and urine culture ONEL with hyperkalemia Clinically looks dehydrated continue normal saline fluid resuscitation, hold nephrotoxic agents, Considering high creatinine I would also hold cyclobenzaprine She has high BNP however clinically looks extremely dehydrated chest x-ray does not show fluid overload signs Sinus rhythm on EKG We will give her calcium gluconate and Kayexalate, insulin and D50 Full code Cardiac diet DVT prophylaxis Heparin Attestations Medical Necessity Statement*: Patient needs to be in hospital for the management of s/p cardiac arrest, sepsis Coding Level of Care Code Acute Branch Operations Manager for [facility] Fwd Diagnoses Sudden cardiac arrest I46.9 Sepsis A41.9 UTI (urinary tract infection) N39.0 ONEL (acute kidney injury) N17.9 Hyperkalemia E87.5
[2020-12-11 13:05] LABS: Add Urine Culture? No; Bacteria Urine 1+ /hpf; Mucus Urine TRACE /hpf; RBC Urine 0-4 /hpf (0-2)
[2020-12-11] MEDS: piperacillin-tazobactam 3.375 GM in sodium chloride 0.9% (plus) 50 ML IV ×2 (13:50→20:46)
[2020-12-11] MEDS: vancomycin 750 MG in sodium chloride 0.9% 250 ML 250 MG IV (14:35)
--- NOTE | 2020-12-11 20:55 | PC.NURSE ---
Assuming care; Patient is intubated and sedated on VC-AC vent mode with settings as follows; 440 TV, 15 RR, 6 Peep, and 23 at lip/7.5 ET tube. Patient answers questions and follows commands by shaking head appropriately, and squeezing hands when asked. She reports no pain at this time. Gtt running as followed; 100 Fent, 4 Versed, 4 Levo, and NS IVF at 100mL/hr. Afib with rate running 120-130's. MD Roshan at bedside and on unit. Orders given for collection of BMP if u/o continues to be less than 30mL/hr.
--- NOTE | 2020-12-11 21:08 | ECG_ITS ---
[facility] Test Date: 2020-12-11 Pat Name: Adrianna Donaldson Department: Room: [facility] Gender: Female Medication Administration Professional: : 1950 Requested By: Nolvia Katz Order Number: [id number] Roger MD: Ary Gardner M.D. Measurements Intervals [place] Rate: 129 P: 78 SC: 151 QRS: 59 QRSD: 68 T: 88 QT: 334 QTc: 491 Interpretive Statements SINUS TACHYCARDIA LOW QRS VOLTAGE IN PRECORDIAL LEADS [QRS DEFLECTION < 1.0 mV IN CHEST LEADS] MINIMAL ST DEPRESSION [0.025+ mV ST DEPRESSION] WARNING: DATA QUALITY MAY AFFECT INTERPRETATION Compared to ECG 12/11/2020 01:40:56 Ventricular premature complex(es) no longer present ST (T wave) deviation still present Electronically Signed On 12-12-2020 7:22:55 CDT by Ary Gardner M.D. [email or web address]
--- NOTE | 2020-12-11 21:14 | PC.NURSE ---
Afib continues to fluctuate in 's. MD Sterling notified. New orders received. Gtt titrations as indicated.
[2020-12-11] MEDS: phenylephrine inj 25 MG in sodium chloride 0.9% 250 ML 24.24 MG IV (21:26)
[2020-12-12] VITALS (105 sets, daily range): BP systolic 78–143; BP diastolic 41–83; PULSE 75–146; RESP 15–26; TEMP 36.4–37; O2SAT 80–100
[2020-12-12] MEDS: sodium chloride 0.9% 1,000 ML 100 ML IV (02:14)
[2020-12-12] MEDS: ipratropium-albuterol 3 mL Neb INHALATION ×5 (03:32→20:07)
[2020-12-12] MEDS: heparin 5,000 unit/mL INJ 1 mL 5000 UNIT SUBCUT ×3 (04:25→21:10)
[2020-12-12] MEDS: piperacillin-tazobactam 3.375 GM in sodium chloride 0.9% (plus) 50 ML IV ×3 (04:25→21:10)
[2020-12-12 04:56] LABS: Basophils % 0.1 %; Eosinophils % 0.1 %; Hematocrit 28.8 % (37.0-47.0); Hemoglobin 8.7 g/dL (11.5-15.3); Lymphocytes # 0.3 10^3/uL (0.8-4.8); Lymphocytes % 1.7 %; Mean Corpuscular HGB Conc 30.2 g/dL (30.0-36.0); Mean Corpuscular Hemoglobin 28.2 pg (28.0-34.0); Mean Corpuscular Volume 93.2 fL (81-99); Mean Platelet Volume 10.7 fL (7.4-10.4); Monocytes # 0.7 10^3/uL (0.2-0.9); Monocytes % 4.6 %; Neutrophils # 14.53 10^3/uL (1.8-7.7); Neutrophils % 93.1 %; Nucleated Red Blood Cells % 0 %; Platelet Count 187 10^3/cmm (130-400); Red Blood Count 3.09 10^6/uL (4.1-5.3); Red Cell Distribution Width 15.5 % (12.1-15.1); White Blood Count 15.6 10^3/uL (4.0-10.0)
[2020-12-12 04:59] LABS: ABG PCO2 44.5 mmHg (35-45); ABG PH Result 7.44 (7.35-7.45); Arterial Blood Gas Hematocrit 28.3 % (37-47); Base Excess ABG 5.2 mmol/L (-2.0-2.0); Blood Gas Allen Test Pos; Blood Gas Operator Identificat JB; Blood Gas Sample Site Radial, right; Blood Gas Sample Type Arterial; Oxygen Device VENT; PO2 ABG 98.9 mmHg (80.0-100.0)
[2020-12-12 05:18] LABS: Anion Gap 17.4 (5-19); Blood Urea Nitrogen 32 mg/dL (8-23); Calcium 9.1 mg/dL (8.5-10.5); Carbon Dioxide 24 mmol/L (22-29); Chloride 97 mmol/L (98-107); Glucose 128 mg/dL (65-115); Osmolality Calculated 287 mOsm/kg (285-295); Potassium 4.4 mmol/L (3.5-5.1); Sodium 134 mmol/L (136-145)
[2020-12-12] MEDS: phenylephrine inj 25 MG in sodium chloride 0.9% 250 ML 36.36 MG IV (08:00)
--- NOTE | 2020-12-12 08:24 | PC.NURSE ---
0700 Pt intubated and sedated on AC-VC vent mode with settings as follows: FiO2-30, VT-400, RR-15, PEEP-6 and 23 at lip/7.5 ET tube. Gtt as follows; 50 Fent, 3 Versed, 60 Daniel, NS IVF @100ml/hr. Lung sounds noted to be coarse with crackles. No edema noted on upper and lower extremities. Skin warm and dry with a bruise to the right chest. Pt heart rhythm noted to be sinus tach. Dr. Islas discussed plan of care this am, plans to do a weaning trail with possible extubation depending on how the patient tolerates. Respiratory notified of plans and will began this am.
[2020-12-12] MEDS: FUROsemide 10 mg/mL SDV 2mL 20 MG IVP ×2 (08:44→21:27)
[2020-12-12] MEDS: dexmedetomidine 400 MCG in sodium chloride 0.9% (100 ml) 100 ML IV (12:55)
[2020-12-12] MEDS: vancomycin 750 MG in sodium chloride 0.9% 250 ML 250 MG IV (15:05)
--- NOTE | 2020-12-12 20:46 | PM.PN ---
Subjective Subjective: Interval history: Patient is intubated and sedated.Off sedation GCS is 8T.Patient remained afebrile,continue to require low dose levophed to maintain MAP>65,urine output in the last so far 920cc.LOS : + 3.5 Ls . Failed CPAP/PS Trial,became tachycardic. SCR has improved. WBC count has slightly trended down. Medications: Reviewed: Yes Vitals/I&O/Wt Last Vital Signs Temp 97.6 F 12/12/20 20:00 Pulse 96 12/12/20 20:16 Resp 15 12/12/20 20:08 BP 106/62 12/12/20 20:00 Pulse Ox 96 12/12/20 20:08 12/12/20 12/12/20 12/12/20 06:59 14:59 22:59 Intake Total 1283.304 / 2195.132 1064.681 / 1064.681 413.494 / 1478.175 Output Total 180 / 420 700 / 700 Balance 1103.304 / 8207.790 9323.681 / 1064.681 -286.506 / 778.175 Weight last 48 hrs Weight 58.967 kg Physical Exam Narrative: EXAM NARRATIVE: Currently intubated and sedated,off sedation her GCS is 8T HENMT: COMMON NORMALS: normocephalic and atraumatic HEAD & SCALP: normocephalic and atraumatic Resp: OTHER: Bilateral coarse breath sounds, diminished at bases Cardio: COMMON NORMALS: regular rate, regular rhythm, S1 normal heart sound present, S2 normal heart sound present, No gallops present (Cardio), No murmurs present (Cardio), No rub (Cardio) and Peripheral pulses 2+ throughout RATE: regular rate RHYTHM: regular rhythm HEART SOUNDS: S1 normal heart sound present and S2 normal heart sound present PERIPHERAL PULSES: Peripheral pulses 2+ throughout GI: COMMON NORMALS: Normal to inspection, nondistended, normoactive bowel sounds present, Soft to palpation, non-tender, No hepatosplenomegaly present and no masses AUSCULTATION: Yes normoactive bowel sounds PALPATION: Yes Soft to palpation and Yes No hepatosplenomegaly present RECTAL EXAM: deferred Urinary Catheter Management^: De Leon: Cath Placed During This Visit: yes Reason for Continuing Indwelling Catheter: Accurate Measurement of Urinary Output in Critically Ill Patients Urinary Catheter Date of Insertion: 12/11/20 Urinary Catheter Time of Insertion: 13:26 Data : 12/12/20 04:02 12/12/20 04:02 Micro: Microbiology 12/11/20 06:49 Blood Culture - Preliminary Blood NEGATIVE TO DATE 12/11/20 06:40 Blood Culture - Preliminary Blood NEGATIVE TO DATE A&P Assessment and plan (1) Sudden cardiac arrest: S/P Cardiac Arrest. Patient experienced sudden cardiac arrest, while undergoing VQ scan.During the code she received 2 epi, 1 amp of bicarb.It Was a PEA arrest.High-quality chest compressions was done.Patient was intubated during the code. ROSC was achieved. Postcode she was on Versed and fentanyl, as well as Levophed as she was Hypotensive. Post code Labs were ordered.( CBC, CMP, Blood culture,ABG, EKG, Troponin ) Abx Coverage was broadened. Status: Acute (2) Sepsis: Sepsis currently source unkown: Lactic acid : 3.5 Procal:0.57 Blood Culture : NTD C.T Abdomen and Pelvis : There are no acute abdominal finding Xray chest : Urine Legionella antigen :Negative Bacterail antigen panel : Negative MRSA PCR : Vancomycin Zosyn Status: Acute (3) UTI (urinary tract infection): Status: Acute (4) ONEL (acute kidney injury): Likely prerenal 2/2 to sever dehydration,cannot rule out ATN 2/2 to hypotension. Improving Monitor BMP C.T Abdomen and pelvis has failed to show any obstructive uropathy. Urine electrolytes Status: Acute (5) Hyperkalemia: Resolved post hyperkalemia cocktail Monitor BMP Status: Acute Additional A&P Information Sepsis Criteria met with tachycardia, leukocytosis and lactic acidemia Patient does have chest congestion, chest imaging is revealing atelectasis, requested procalcitonin and urinalysis, patient is endorsing dysuria CT abdomen/pelvis is showing perinephric stranding, I would keep her on ceftriaxone for now Continue normal saline, received 2 L of normal saline in the ER current blood pressure 91/59 mmHg Currently saturating 92% on 2 L nasal cannula Her D-dimer would not be considered high compared to her age and history of vaginal cancer, she is saturating well at baseline oxygen supplementation, however initially EKG showed sinus tachycardia, request VQ scan DuoNeb every 4 as needed Requested blood and urine culture ONEL with hyperkalemia Clinically looks dehydrated continue normal saline fluid resuscitation, hold nephrotoxic agents, Considering high creatinine I would also hold cyclobenzaprine She has high BNP however clinically looks extremely dehydrated chest x-ray does not show fluid overload signs Sinus rhythm on EKG We will give her calcium gluconate and Kayexalate, insulin and D50 Full code Cardiac diet DVT prophylaxis Heparin Attestations Medical Necessity Statement*: Patient needs to be in hospital for the management of sepsis.s/p cardiac arrest. Coding Level of Care Code Acute Numerical Control Machine Operator for [facility] Fwd Diagnoses Sudden cardiac arrest I46.9 Sepsis A41.9 UTI (urinary tract infection) N39.0 ONEL (acute kidney injury) N17.9 Hyperkalemia E87.5
--- NOTE | 2020-12-12 23:00 | PC.NURSE ---
Other Delay; Patient wristband and chart stickers not able to be scanned for med pass. Registration called, and reprinted patient a new wristband.
[2020-12-13] VITALS (93 sets, daily range): BP systolic 67–159; BP diastolic 46–113; PULSE 62–138; RESP 15–36; TEMP 36.6–36.9; O2SAT 92–100
--- NOTE | 2020-12-13 00:45 | PC.NURSE ---
Patient having increased periods of agitation. At times found biting against ET tubing. Tachycardia follows immediately after, with decreased SPO2 at around 80% temporarily. Titrations made per protocol. Patient Maps continue to run soft. Levo titrated per protocol. Patient not able to tolerate decreased mcg of levo titrations with each attempt, regardless of titrates in sedation meds. RN noted right arm and wrist increasing in edema, decreased skin temp, and change of coloring beginning. RN notified MD Sterling office nurse practitioner of findings and concerns of Levo infusing through peripheral line. MD came to bedside to assess and determined need for a central line placement.
--- NOTE | 2020-12-13 01:57 | XRR_ITS ---
PROCEDURE INFORMATION: Exam: XR Chest Exam date and time: 12/13/2020 1:57 AM Age: 70 years old Clinical indication: Device placement; Picc; Additional info: Central line placement/neck TECHNIQUE: Imaging protocol: XR of the chest. Views: 1 view. COMPARISON: CT chest abd pel wo con 12/11/2020 3:48 AM FINDINGS: Tubes, catheters and devices: Endotracheal tube projects above the level of the trey. Right IJ line tip projects over the SVC. Monitor leads project over the chest wall. Lungs: Hyperinflation of the lungs with changes of COPD. Patchy bibasilar atelectasis or other infiltrates. Known pulmonary nodules are better appreciated on prior CT. Pleural spaces: Unremarkable. No pleural effusion. No pneumothorax. Heart/Mediastinum: No cardiomegaly. Bones/joints: No acute fracture. XR/XR chest 1V portable [id number] IMPRESSION: 1. Right IJ line tip projects over the SVC. 2. Patchy bibasilar atelectasis or other infiltrates.
--- NOTE | 2020-12-13 02:09 | PM.ACPR ---
Procedure/Consent Time out: Time Out Performed: Yes Consent: Consent for Procedure: Consent obtained from other (indicate) (family, daughter) Procedure Narrative: Right IJ central line for vasopressor use Indication: Vasopressor usage for hypotension Consent taken from her daughter Narrative Patient was prepped and draped in sterile fashion, ultrasound sterile probe was used to locate right IJ, introducer needle was inserted on first attempt in right IJ vein under ultrasound guidance, venous flash noted in the syringe, venous pulsation noted, witnessed by the icu nurse Seldinger technique was used to place triple-lumen catheter, all 3 ports had good venous return, line secured with sterile dressing and sutured, sharps including guidewire were thrown in the sharp container Will request chest x-ray to confirm placement of right IJ Estimated blood 0 mL No complications Acute Procedures Epistaxis Control: Time out performed: Yes
--- NOTE | 2020-12-13 03:00 | PC.NURSE ---
Central Line Placement; Central line placement completed by MD Sterling and placed to right IJ/neck via sterile procedure. 7F triple lumen central line kit used. Stat chest xray ordered and completed per protocol. MD notified of completion of cxr, and gave orders for okay for use. Levophed gtt switched from peripheral IV line, to central line lumen. Right wrist IV removed with application of warm compress to arm, then elevated, and pressure dressing applied.
[2020-12-13] MEDS: dexmedetomidine 400 MCG in sodium chloride 0.9% (100 ml) 100 ML 10.73 MCG IV ×2 (03:56→13:30)
[2020-12-13 04:21] LABS: Basophils % 0.1 %; Eosinophils % 0.2 %; Hematocrit 26.2 % (37.0-47.0); Hemoglobin 8.1 g/dL (11.5-15.3); Lymphocytes # 0.1 10^3/uL (0.8-4.8); Lymphocytes % 0.9 %; Mean Corpuscular HGB Conc 30.9 g/dL (30.0-36.0); Mean Corpuscular Hemoglobin 27.9 pg (28.0-34.0); Mean Corpuscular Volume 90.3 fL (81-99); Mean Platelet Volume 10.8 fL (7.4-10.4); Monocytes # 0.7 10^3/uL (0.2-0.9); Monocytes % 4.9 %; Neutrophils % 92.6 %; Nucleated Red Blood Cells % 0.2 %; Platelet Count 190 10^3/cmm (130-400); Red Cell Distribution Width 15.6 % (12.1-15.1); White Blood Count 14.6 10^3/uL (4.0-10.0)
[2020-12-13] MEDS: piperacillin-tazobactam 3.375 GM in sodium chloride 0.9% (plus) 50 ML IV ×3 (04:25→20:48)
[2020-12-13] MEDS: heparin 5,000 unit/mL INJ 1 mL 5000 UNIT SUBCUT ×3 (04:26→20:48)
[2020-12-13 04:37] LABS: Alanine Aminotransferase 9 U/L (0-33); Albumin Level 2.8 g/dL (3.5-5.2); Alkaline Phosphatase 62 IU/L (35-105); Anion Gap 16.2 (5-19); Aspartate Amino Transferase 35 U/L (0-32); Blood Urea Nitrogen 27 mg/dL (8-23); Calcium 8.6 mg/dL (8.5-10.5); Carbon Dioxide 28 mmol/L (22-29); Chloride 97 mmol/L (98-107); Globulin 3.4 g/dL (1.3-4.6); Glucose 123 mg/dL (65-115); Osmolality Calculated 290 mOsm/kg (285-295); Potassium 4.2 mmol/L (3.5-5.1); Sodium 137 mmol/L (136-145); Total Bilirubin 0.3 mg/dL (0.15-1.2); Total Protein 6.2 g/dL (6.6-8.7)
[2020-12-13 04:40] LABS: Lactate (Lactic Acid level) 1.1 mmol/L (0.5-2.2)
--- NOTE | 2020-12-13 05:08 | PC.NURSE ---
Permission; RN phoned patient's daughter Paulina who is listed in demographics of patient chart, to receive permission for central line placement. Second RN Anuradha verified permission given. Consent form signed, and inside of patient hard copy chart.
[2020-12-13] MEDS: ipratropium-albuterol 3 mL Neb INHALATION ×3 (07:37→19:41)
[2020-12-13] MEDS: FUROsemide 10 mg/mL SDV 2mL 20 MG IVP ×2 (08:50→20:43)
--- NOTE | 2020-12-13 11:45 | PC.NURSE ---
Report sheet faxed to [facility]
[2020-12-13] MEDS: LORazepam 2 mg/mL INJ 1 mL IVP ×4 (11:49→23:43)
--- NOTE | 2020-12-13 11:57 | PC.NURSE ---
Pt vent setting is MMV, Dr. Islas at bedside requesting the pt be extubated and put on Bipap at this time. Savannah RT verifies orders.
--- NOTE | 2020-12-13 12:01 | PC.NURSE ---
Fentanyl drip Bag Wasted 65 ml of Fentanyl with RN Fanny.
[2020-12-13 15:15] LABS: Vancomycin Trough 9.3 ug/mL (10-15)
[2020-12-13] MEDS: vancomycin 1,000 MG in sodium chloride 0.9% 250 ML 250 MG IV (16:15)
--- NOTE | 2020-12-13 19:57 | PM.PN ---
Subjective Subjective: Interval history: Patient was successfully extubated to BIPAP today. Currently she is on /E: 168 FIO2: 30 %. She has been continued on precedex to help tolerate the BIPAP as well as on Ativan 2 mg I.V q4h PRN. Medications: Reviewed: Yes Vitals/I&O/Wt Last Vital Signs Temp 97.9 F 12/13/20 04:00 Pulse 89 12/13/20 19:44 Resp 28 H 12/13/20 19:40 BP 125/83 12/13/20 18:30 Pulse Ox 94 12/13/20 19:44 12/13/20 12/13/20 12/13/20 06:59 14:59 22:59 Intake Total 313.350 / 1830.172 208.495 / 208.495 349.819 / 558.314 Output Total 1000 / 1750 1300 / 1300 Balance -686.650 / 80.172 208.495 / 208.495 -950.181 / -741.686 Physical Exam Narrative: EXAM NARRATIVE: GCS is 10 HENMT: COMMON NORMALS: normocephalic and atraumatic HEAD & SCALP: normocephalic and atraumatic Resp: OTHER: Bilateral coarse breath sounds, diminished at bases Cardio: COMMON NORMALS: regular rate, regular rhythm, S1 normal heart sound present, S2 normal heart sound present, No gallops present (Cardio), No murmurs present (Cardio), No rub (Cardio) and Peripheral pulses 2+ throughout RATE: regular rate RHYTHM: regular rhythm HEART SOUNDS: S1 normal heart sound present and S2 normal heart sound present PERIPHERAL PULSES: Peripheral pulses 2+ throughout GI: COMMON NORMALS: Normal to inspection, nondistended, normoactive bowel sounds present, Soft to palpation, non-tender, No hepatosplenomegaly present and no masses AUSCULTATION: Yes normoactive bowel sounds PALPATION: Yes Soft to palpation and Yes No hepatosplenomegaly present RECTAL EXAM: deferred Urinary Catheter Management^: De Leon: Cath Placed During This Visit: yes Reason for Continuing Indwelling Catheter: Accurate Measurement of Urinary Output in Critically Ill Patients Urinary Catheter Date of Insertion: 12/11/20 Urinary Catheter Time of Insertion: 13:26 Data : 12/13/20 03:22 12/13/20 03:22 A&P Assessment and plan (1) Sudden cardiac arrest: S/P Cardiac Arrest. Patient experienced sudden cardiac arrest, while undergoing VQ scan.During the code she received 2 epi, 1 amp of bicarb.It Was a PEA arrest.High-quality chest compressions was done.Patient was intubated during the code. ROSC was achieved. Postcode she was on Versed and fentanyl, as well as Levophed as she was Hypotensive. Post code Labs were ordered. ( CBC, CMP, Blood culture,ABG, EKG, Troponin ). EKG: SINUS TACHYCARDIA V/Q Scan: Negative For P/E C.T head without contrast : 2D Echo : Technically difficult study Abx Coverage was broadened. S/P Extubation to BIPAP today. Currently she is on 1/E: 16/8 FIO2: 30 %. She has been continued on precedex to help tolerate the BIPAP as well as on Ativan 2 mg I.V q4h PRN. Currently GCS Is :10 Status: Acute (2) Sepsis: Sepsis currently source unkown: Lactic acid : 3.5-->1.1 Procal:0.57 Blood Culture : NTD C.T Abdomen and Pelvis : There are no acute abdominal finding Xray chest : Patchy bibasilar atelectasis or other infiltrates. Urine Legionella antigen :Negative Bacterail antigen panel : Negative MRSA PCR : Vancomycin Zosyn Status: Acute (3) UTI (urinary tract infection): Status: Acute (4) ONEL (acute kidney injury): Likely prerenal 2/2 to sever dehydration,cannot rule out ATN 2/2 to hypotension. Improving Monitor BMP C.T Abdomen and pelvis has failed to show any obstructive uropathy. Urine electrolytes Status: Acute (5) Hyperkalemia: Resolved post hyperkalemia cocktail Monitor BMP Status: Acute (6) Respiratory failure, chronic: Chronic Hypoxic R/F:2/2 COPD.Uses 3ls oxygen at home. Currently on BIPAP Solumedrol 60 mg q12 h daily Duo Nebs Lasix 40 mg I.V Q24 H Daily Status: Acute Additional A&P Information Sepsis Criteria met with tachycardia, leukocytosis and lactic acidemia Patient does have chest congestion, chest imaging is revealing atelectasis, requested procalcitonin and urinalysis, patient is endorsing dysuria CT abdomen/pelvis is showing perinephric stranding, I would keep her on ceftriaxone for now Continue normal saline, received 2 L of normal saline in the ER current blood pressure 91/59 mmHg Currently saturating 92% on 2 L nasal cannula Her D-dimer would not be considered high compared to her age and history of vaginal cancer, she is saturating well at baseline oxygen supplementation, however initially EKG showed sinus tachycardia, request VQ scan DuoNeb every 4 as needed Requested blood and urine culture ONEL with hyperkalemia Clinically looks dehydrated continue normal saline fluid resuscitation, hold nephrotoxic agents, Considering high creatinine I would also hold cyclobenzaprine She has high BNP however clinically looks extremely dehydrated chest x-ray does not show fluid overload signs Sinus rhythm on EKG We will give her calcium gluconate and Kayexalate, insulin and D50 Full code Cardiac diet DVT prophylaxis Heparin Attestations Medical Necessity Statement*: Patient is status post code, sepsis Coding Level of Care Code Acute Supervisor Payroll for [facility] Fwd Diagnoses Sudden cardiac arrest I46.9 Sepsis A41.9 UTI (urinary tract infection) N39.0 ONEL (acute kidney injury) N17.9 Hyperkalemia E87.5 Respiratory failure, chronic J96.10
--- NOTE | 2020-12-13 21:00 | CTR_ITS ---
PROCEDURE INFORMATION: Exam: CT Head Without Contrast Exam date and time: 12/13/2020 9:00 PM Age: 70 years old Clinical indication: Altered mental status/memory loss; Confusion or disorientation; Patient HX: Post code AMS; Additional info: S/P cardiac arrest TECHNIQUE: Imaging protocol: Computed tomography of the head without contrast. Radiation optimization: All CT scans at this facility use at least one of these dose optimization techniques: automated exposure control; mA and/or kV adjustment per patient size (includes targeted exams where dose is matched to clinical indication); or iterative reconstruction. 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 Cerebral ventricles: No ventriculomegaly. Paranasal sinuses: Mild right maxillary sinus disease. Mastoid air cells: Visualized mastoid air cells are well aerated. Vasculature: Severe calcified intracranial atherosclerotic vessel disease. Bones/joints: Unremarkable. No acute fracture. Soft tissues: Unremarkable. CT/CT head wo con* [id number] IMPRESSION: 1. Mild right maxillary sinus disease. 2. No acute intracranial findings. Radiation Dose CTDIVOL = (mGy): DLP = 835.04 (mGy-cm)
[2020-12-13] MEDS: morphine 4 mg/mL SDV 1 mL 2 MG IVP (21:31)
[2020-12-14] VITALS (60 sets, daily range): BP systolic 83–168; BP diastolic 51–103; PULSE 58–175; RESP 15–35; TEMP 36.8; O2SAT 79–100
[2020-12-14] MEDS: dexmedetomidine 400 MCG in sodium chloride 0.9% (100 ml) 100 ML IV ×3 (00:25→12:44)
[2020-12-14 04:47] LABS: ABG PCO2 51.8 mmHg (35-45); ABG PH Result 7.46 (7.35-7.45); Arterial Blood Gas Hematocrit 28.4 % (37-47); Base Excess ABG 11.2 mmol/L (-2.0-2.0); Blood Gas Allen Test Pos; Blood Gas Sample Type Arterial; Carboxyhemoglobin 0.9 %THgb (0.4-20.1); HCO3 ABG 36.5 mmol/L (22-26); Ionized Calcium Level - ABG 1.2 mmol/L (1.1-1.4); Methemoglobin 0.7 % (0.4-1.5); Oxygen Saturation ABG 94.5; PO2 ABG 66.5 mmHg (80.0-100.0); Potassium Level - ABG 3.9 mmol/L (3.5-5.0); Total Hemoglobin 9.3 g/dL (12-16)
[2020-12-14 04:48] LABS: Blood Gas Operator Identificat JB; Blood Gas Sample Site Radial, right; Oxygen Device BIPAP
[2020-12-14] MEDS: piperacillin-tazobactam 3.375 GM in sodium chloride 0.9% (plus) 50 ML IV ×3 (04:51→20:42)
[2020-12-14] MEDS: heparin 5,000 unit/mL INJ 1 mL 5000 UNIT SUBCUT ×2 (04:54→13:34)
[2020-12-14] MEDS: LORazepam 2 mg/mL INJ 1 mL IVP ×3 (05:01→20:02)
--- NOTE | 2020-12-14 05:17 | PC.NURSE ---
azithromycin 500 mg IV infusion on AUG but not in pyxis, Rx notified and informed this nurse that that medication is not on their list of meds to fill
[2020-12-14 06:07] LABS: Basophils % 0.4 %; Eosinophils # 0.1 10^3/uL (0.0-0.8); Eosinophils % 1.4 %; Hematocrit 27.2 % (37.0-47.0); Hemoglobin 8.6 g/dL (11.5-15.3); Lymphocytes # 0.1 10^3/uL (0.8-4.8); Lymphocytes % 1.1 %; Mean Corpuscular HGB Conc 31.6 g/dL (30.0-36.0); Mean Corpuscular Hemoglobin 28.6 pg (28.0-34.0); Mean Corpuscular Volume 90.4 fL (81-99); Mean Platelet Volume 11.8 fL (7.4-10.4); Monocytes # 0.2 10^3/uL (0.2-0.9); Monocytes % 1.9 %; Neutrophils # 8.71 10^3/uL (1.8-7.7); Neutrophils % 93.6 %; Nucleated Red Blood Cells % 0.2 %; Platelet Count 186 10^3/cmm (130-400); Red Blood Count 3.01 10^6/uL (4.1-5.3); Red Cell Distribution Width 15.7 % (12.1-15.1); White Blood Count 9.3 10^3/uL (4.0-10.0)
[2020-12-14 06:36] LABS: Alanine Aminotransferase 11 U/L (0-33); Alkaline Phosphatase 59 IU/L (35-105); Anion Gap 15.7 (5-19); Aspartate Amino Transferase 27 U/L (0-32); Blood Urea Nitrogen 27 mg/dL (8-23); Calcium 8.4 mg/dL (8.5-10.5); Carbon Dioxide 32 mmol/L (22-29); Chloride 93 mmol/L (98-107); Globulin 3.3 g/dL (1.3-4.6); Glucose 127 mg/dL (65-115); NT Pro B Type Natriuretic Pept 3120 pg/mL (0-125); Osmolality Calculated 291 mOsm/kg (285-295); Potassium 3.7 mmol/L (3.5-5.1); Sodium 137 mmol/L (136-145); Total Bilirubin 0.4 mg/dL (0.15-1.2); Total Protein 6.3 g/dL (6.6-8.7)
[2020-12-14] MEDS: ipratropium-albuterol 3 mL Neb INHALATION ×4 (07:45→20:13)
--- NOTE | 2020-12-14 09:15 | USCV_ITS ---
Mendoza Adrianna Age: 70 Gender: F : 1950 Exam Date: 12/14/2020 13:45 Ordering Phys: Wilian Aguilar MD Technologist: Exam Location: [facility] [place] Indication: POST CODE BP: / HR: Rhythm: Sinus Technical Quality: TDS MEASUREMENTS (Male / Female) Normal Values FINDINGS Left Ventricle Right Ventricle Right Atrium Left Atrium Mitral Valve Aortic Valve Tricuspid Valve Pulmonic Valve Pericardium Aorta CONCLUSIONS This is a limited 2D echo with contrast-to evaluate the LV ejection fraction. Apparently the study could not visualize the cardiac structures Dr. Aguilar was informed about this Dr Aj Jaramillo MD FACC (Electronically Signed) Final Date: 15 December 2020 16:15 S
[2020-12-14] MEDS: FUROsemide 10 mg/mL SDV 4mL 40 MG IVP (10:24)
--- NOTE | 2020-12-14 13:49 | ECG_ITS ---
[facility] Test Date: 2020-12-14 Pat Name: Adrianna Donaldson Department: Room: [facility] Gender: Female Geospatial Extractor Analysis: : 1950 Requested By: Wilian Aguilar Order Number: [id number] Roger MD: Aj Jaramillo M.D. Measurements Intervals [place] Rate: 89 P: 77 TX: 150 QRS: 70 QRSD: 74 T: 24 QT: 303 QTc: 370 Interpretive Statements SINUS RHYTHM LOW QRS VOLTAGE IN PRECORDIAL LEADS [QRS DEFLECTION < 1.0 mV IN CHEST LEADS] NONSPECIFIC T-WAVE ABNORMALITY Compared to ECG 12/11/2020 21:20:38 T-wave abnormality now present Sinus tachycardia no longer present ST (T wave) deviation no longer present Electronically Signed On 12-14-2020 21:17:39 CDT by Aj Jaramillo M.D. [id number]
[2020-12-14] MEDS: perflutren protein-a microsphr 0.22 mg/mL SDV 3 mL IV (14:01)
[2020-12-14] MEDS: metoprolol tartrate 1 mg/1 mL SDV 5 mL 5 MG IV (14:14)
--- NOTE | 2020-12-14 14:28 | XRR_ITS ---
PROCEDURE INFORMATION: Exam: XR Chest Exam date and time: 12/14/2020 2:28 PM Age: 70 years old Clinical indication: Shortness of breath. TECHNIQUE: Imaging protocol: XR of the chest. Views: 1 view. COMPARISON: CR (CHEST, ) 12/13/2020 3:00 AM FINDINGS: Tubes, catheters and devices: Right internal jugular central venous access device with tip in the SVC. Lungs: No pulmonary consolidation. Pleural spaces: Possible trace right pleural effusion. No pneumothorax. Heart/Mediastinum: The cardiac silhouette is unchanged. No gross evidence of pneumomediastinum. Bones/joints: No gross fracture. Soft tissues: Multiple nodular densities are seen in the chest bilaterally that were better visualized on prior CT. XR/XR chest 1V portable [id number] IMPRESSION: 1. Right internal jugular central venous access device with tip in the SVC. 2. Multiple nodular densities are seen in the chest bilaterally that were better visualized on prior CT. 3. Possible trace right pleural effusion.
--- NOTE | 2020-12-14 14:28 | ECG_ITS ---
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 Measurements Intervals [place] Rate: 157 P: 79 IA: 110 QRS: 78 QRSD: 72 T: 84 QT: 282 QTc: 456 Interpretive Statements SINUS TACHYCARDIA WITH SHORT IA INTERVAL, POSSIBLE ATRIAL FLUTTER NONSPECIFIC ST & T-WAVE ABNORMALITY ABNORMAL RHYTHM ECG INTERPRETATION BASED ON A DEFAULT AGE OF 40 YEARS Compared to ECG 12/11/2020 21:20:38 T-wave abnormality now present ST (T wave) deviation no longer present Electronically Signed On 12-14-2020 21:17:29 CDT by Aj Jaramillo M.D. [email or web address].[email or web address]/store/[id number] f
[2020-12-14] MEDS: enoxaparin 60 mg/0.6 mL Syringe SUBCUT (14:48)
--- NOTE | 2020-12-14 14:49 | PC.NURSE ---
Pt HR jumped to 170's. Stat EKG done and Dr. Aguilar notified. ACLS protocol initiated and Adenosine 6 mg pushed, 2 min later 12 mg pushed. When first 6 mg pushed, HR paused, this was recorded on monitor, HR increased again to 140's. After additional 12mg pushed HR again paused and increased to low 100's. Dr. Aguilar on floor, New orders for Metoprolol and Amiodoarone drip. ABG drawn, within limits. Staff remain at bedside monitoring. Dr. Aguilar spoke with daughter and updated her.
--- NOTE | 2020-12-14 15:03 | P.PN_ITS ---
Subjective Subjective: Interval history: This morning patient was examined, she is on the BiPAP, overnight the nurses tell me that after extubation, she was able to follow commands such as nodding her head, squeezing their fingers, but she did have episodes of agitation overnight requiring Ativan and Precedex This morning, she does withdraw from pain, pupils are equal round reactive to light, she does withdraw from the light, she does have spontaneous movement of upper and lower extremities, she remains on the Precedex, is on BiPAP, however does not respond to my commands, nurses tell me that she was able to squeeze her fingers early in the morning to verbalize understanding At roughly 2 PM today, patient had episodes of SVT heart rates in the 170s, 6 mg of adenosine without improvement, got 12 mg adenosine without improvement, 5 mg metoprolol heart rates came down into the 110s, looks sinus, however on the monitor there was some episodes of irregular rhythm, and absent P waves, thus she could possibly also have A. fib, so I gave her a amiodarone bolus, started with a drip, her heart rates have improved to the 90s to 100, normal sinus rhythm, blood pressures are a bit soft, her Precedex was increased to 0.8, she is resting now comfortably, repeat ABG shows a pH of 7.4 6, PCO2 51.8, PO2 66.5, on 30% BiPAP, she is less agitated, I had a discussion with patient's daughter, patient does not have any other family members, she is a full code, her daughter is her next decision-maker, her daughter wants her to remain a full code, however she does go into cardiac arrest, she wants to be kept updated, as she does not want prolonged measures, she is okay with intubation, advised patient daughter that she is out of the SVT, however she is is in a tenuous spot, her etiology of her cardiac arrest and PEA remains undetermined, but I am highly suspicious for pulmonary emboli, thus I will start her on therapeutic Lovenox, echocardiogram of the heart has been ordered, troponin series has been ordered, will keep her updated Medications: Reviewed: Yes Vitals/I&O/Wt Last Vital Signs Temp 98.2 F 12/14/20 07:30 Pulse 77 12/14/20 14:59 Resp 23 H 12/14/20 14:58 BP 96/59 06/28/21 13:00 Pulse Ox 97 12/14/20 14:59 12/14/20 12/14/20 12/14/20 06:59 14:59 22:59 Intake Total 68.676 / 626.990 86.994 / 86.994 Output Total 1500 / 2800 Balance -1431.324 / -2173.010 86.994 / 86.994 Physical Exam Const: ORIENTATION/CONSCIOUSNESS: Yes awake and Yes confused; not oriented to person, not oriented to place and not oriented to time OTHER: A bit anxious this morning, a bit agitated Resp: COMMON NORMALS: normal respiratory effort, No retractions and No use of accessory muscles AUSCULTATION: crackles Cardio: COMMON NORMALS: regular rate, regular rhythm, S1 normal heart sound present and S2 normal heart sound present RATE: regular rate RHYTHM: regular rhythm HEART SOUNDS: S1 normal heart sound present, S2 normal heart sound present and no murmurs GI: COMMON NORMALS: Normal to inspection, nondistended, normoactive bowel sounds present, Soft to palpation and non-tender PALPATION: Yes Soft to palpation Extremity: COMMON NORMALS: no pedal edema Neuro: SENSORIUM/ORIENTATION: No oriented to person, No oriented to place and No oriented to time Urinary Catheter Management^: [place]: Cath Placed During This Visit: yes Reason for Continuing Indwelling Catheter: Accurate Measurement of Urinary Output in Critically Ill Patients Urinary Catheter Date of Insertion: 12/11/20 Urinary Catheter Time of Insertion: 13:26 Data : 12/14/20 03:25 12/14/20 03:25 A&P Assessment and plan (1) Sudden cardiac arrest: S/P Cardiac Arrest With acute respiratory failure secondary to possible pulmonary emboli, fluid overload, CHF Suspicious for pulmonary pulmonary emboli, however cannot rule out underlying cardiac etiology with underlying sepsis Patient experienced sudden cardiac arrest, while undergoing VQ scan.During the code she received 2 epi, 1 amp of bicarb.It Was a PEA arrest.High-quality chest compressions was done.Patient was intubated during the code. ROSC was achieved. Postcode she was on Versed and fentanyl, as well as Levophed as she was Hypotensive. Post code Labs were ordered. ( CBC, CMP, Blood culture,ABG, EKG, Troponin ). EKG: SINUS TACHYCARDIA V/Q Scan: Indeterminate and essentially nondiagnostic evaluation for pulmonary embolism by VQ scan. Nondiagnostic evaluation is due to significant underlying chronic lung disease. There are multiple areas of matched and minimally unmatched defects. Majority of these defects are matched and related to emphysema. However given her PA, history of vaginal cancer, she is high risk of hypercoagulability, high risk of PE, started on therapeutic Lovenox, CT angiogram ordered, bilateral extremity ultrasound for DVT C.T head without contrast : 1. Mild right maxillary sinus disease. 2. No acute intracranial findings. 2D Echo : Technically difficult study, will repeat echo with contrast Abx Coverage was broadened to vancomycin and Zosyn S/P Extubation to BIPAP toda 12/13/2020 . Currently she is on : 01/02 FIO2: 30 %. Repeat ABG shows PCO2 51.8, PO2 66.5, ph 7.46 on 30% BiPAP Currently maintaining her airway, is 0.8 on Precedex, if her mentation deteriorates, or she becomes hypoxic will intubate Episode of SVT on 12/14/2020, status post 6 mg adenosine, 12 mg adenosine, 5 mg of IV metoprolol, received bolus of amiodarone, currently on amiodarone drip Continue amiodarone drip, as I suspect that patient's underlying rhythm was A. fib rather than SVT BNP, echo, troponin series, CMP, mag ordered Continue aspirin, statin Continue Lasix 40 mg IV push daily, +769 Continue Precedex drip at 0.8 anemia, hgb 8.6, protonix 40mg IV daily Currently GCS Is :10 Full code Therapeutic Lovenox for DVT prophylaxis I had a discussion with patient's daughter again this afternoon, patient's daughter was not aware of how extensive patient's vaginal cancer is, to metastatic to the lungs, metastatic to the bone, speaking to Dr. Lopez, the only options that are available to her is palliative ration therapy, she has a poor functional status, overall prognosis is poor, currently patient is on the BiPAP, she is back into normal sinus rhythm, amiodarone, she is a bit responsive, she does withdraw from pain, she is a bit anxious, patient's daughter tells me that she is always in a lot of pain, and is quite anxious, given her bony metastatic disease in her cancer, but daughter was not aware about how extensive it was. I had a honest discussion with patient's daughter, given how extensive her cancer is, I think that the likelihood of her having a meaningful recovery is fairly unlikely, if she were to go into cardiac arrest a nd respiratory failure she would likely remain on the ventilator, and she would likely not have any significant chance of meaningful recovery. Patient's daughter tells me that she is a full code, but this paper work was done much before she was diagnosed even with vaginal cancer, and they really did not have a discussion about what her wishes were after her vaginal cancer diagnosis, and she is not sure exactly what her mom would want to have done given her extensive metastatic disease. I advised patient's daughter that I think the likelihood of her coming off the BiPAP or having any improvement is fairly unlikely, I am worried that she might go back into respiratory distress and be intubated again or going to cardiac arrest, or suffer complications. Given all the information I have gathered from her and Dr. Lopez seems like she is in a lot of pain, she is anxious, I am just worried that doing extensive and aggressive interventions might not be in her best interest given how metastatic her disease is. I advised patient's daughter that I highly worried that she in the next few hours might go into cardiac arrest into respiratory failure, and that she should come and see her,, and hopefully she can have a discussion with family about her goals of care. Patient's daughter tells me that she was can discuss with the rest of the family, and come and see her mom in the hospital. Status: Acute (2) Sepsis: Sepsis currently source unkown: Lactic acid : 3.5-->1.1 Procal:0.57 Blood Culture : NTD C.T Abdomen and Pelvis : There are no acute abdominal finding Xray chest : Patchy bibasilar atelectasis or other infiltrates. Urine Legionella antigen :Negative Bacterail antigen panel : Negative MRSA PCR : Pending Vancomycin Zosyn Status: Acute (3) UTI (urinary tract infection): Status: Acute (4) ONEL (acute kidney injury): Likely prerenal 2/2 to sever dehydration,cannot rule out ATN 2/2 to hypotension. Improving Monitor BMP C.T Abdomen and pelvis has failed to show any obstructive uropathy. Urine electrolytes Status: Acute (5) Hyperkalemia: Resolved post hyperkalemia cocktail Monitor BMP Status: Acute (6) Respiratory failure, chronic: Chronic Hypoxic R/F:2/2 COPD.Uses 3ls oxygen at home. 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 By clinical evaluation, her disease is stage at least III (T2b, N1, M0) and possibly stage IV, depending on the status of the retroperitoneal lymph nodes. -pulmonary metastatic and bone metastatic - A PET/CT ordered on October 31, 2020 (independently visualized in [facility]) demonstrated the vaginal primary carcinoma (SUV 21.8), extensive hypermetabolic bilateral pelvic adenopathy (left obturator, bilateral pelvic fossa, left common iliac, and right periaortic lymphadenopathy), bilateral FDG positive pulmonary nodules, and osseous lesions in the medial left scapula, 12th thoracic vertebral body, right ilium, sacrum, and posterior left acetabulum. -receiving palliative radiation therapy -prognosis is overall poor Status: Acute Additional A&P Information Acute on chronic anemia, hemoglobin 8.6, continue to monitor hemoglobin closely as patient will be on therapeutic Lovenox, Hemoccult stool, iron studies -Possible slow GI bleed, continue Protonix, iron studies as above, monitor hemoglobin ONEL with hyperkalemia Clinically looks dehydrated continue normal saline fluid resuscitation, hold nephrotoxic agents, Considering high creatinine I would also hold cyclobenzaprine She has high BNP however clinically looks extremely dehydrated chest x-ray does not show fluid overload signs Sinus rhythm on EKG We will give her calcium gluconate and Kayexalate, insulin and D50 Full code Cardiac diet DVT prophylaxis Heparin Attestations Medical Necessity Statement*: Patient requires hospitalization for acute respiratory failure, cardiac arrest, concern for pulmonary emboli, sepsis Coding Level of Care Code Acute Twist Tester for [facility] Fwd Diagnoses Sudden cardiac arrest I46.9 Sepsis A41.9 UTI (urinary tract infection) N39.0 ONEL (acute kidney injury) N17.9 Hyperkalemia E87.5 Respiratory failure, chronic J96.10 SVT (supraventricular tachycardia) I47.1 Acute respiratory failure J96.00 Vaginal cancer C52
--- NOTE | 2020-12-14 15:12 | PC.RESP ---
SMOKING CESSATION AND PULMONARY REHAB INFORMATION SENT TO PATIENT.
--- NOTE | 2020-12-14 15:13 | USCV_ITS ---
Adrianna Donaldson Age: 70 Gender: F : 1950 Exam Date: 12/14/2020 16:11 Ordering Phys: Wilian Aguilar MD Technologist: Suni Marquez Exam Location: [facility] – [place] Indication: ?PE HISTORY: DVT. PROCEDURES: The venous duplex Doppler examination of both lower extremities was performed in the standard fashion. The following venous structures were evaluated: common femoral vein, profunda vein, proximal portion of the greater saphenous vein, superficial femoral vein, and the popliteal vein. In addition, the posterior tibial and peroneal trunk were evaluated. Serial compression, augmentation maneuvers, and spectral Doppler flow evaluation were performed. FINDINGS: Normal 2-D Doppler and augmentation and compressibility throughout the lower extremity venous structures. Additional imaging through the proximal calf veins also reveals no thrombus. Limited evaluation of the greater saphenous vein is patent with no thrombus.. The veins were found to be easily compressible with spontaneous blood flow. Non pulsatile flow pattern. CONCLUSIONS No evidence of DVT in the above-mentioned identifiable veins. Dr Aj Jaramillo MD [facility] (Electronically Signed) Final Date: 15 December 2020 16:18 S
[2020-12-14 15:45] LABS: Troponin(5th) Baseline 84 ng/L (0-10)
[2020-12-14 15:51] LABS: NT Pro B Type Natriuretic Pept 3666 pg/mL (0-125)
[2020-12-14 15:52] LABS: Alanine Aminotransferase 10 U/L (0-33); Albumin Level 3.1 g/dL (3.5-5.2); Alkaline Phosphatase 55 IU/L (35-105); Anion Gap 16.2 (5-19); Aspartate Amino Transferase 22 U/L (0-32); Blood Urea Nitrogen 31 mg/dL (8-23); Calcium 8.1 mg/dL (8.5-10.5); Carbon Dioxide 32 mmol/L (22-29); Chloride 92 mmol/L (98-107); Globulin 3.1 g/dL (1.3-4.6); Glucose 125 mg/dL (65-115); Magnesium 1.6 mg/dL (1.7-2.3); Osmolality Calculated 292 mOsm/kg (285-295); Potassium 3.2 mmol/L (3.5-5.1); Sodium 137 mmol/L (136-145); Thyroid Stimulating Hormone 0.44 uIU/mL (0.27-4.20); Total Bilirubin 0.4 mg/dL (0.15-1.2); Total Protein 6.2 g/dL (6.6-8.7)
--- NOTE | 2020-12-14 16:02 | DCPLANNER ---
Pg 2 of IM updated and placed in the chart. No plan for d/c within the next 48 hours. We will update the im with pt when she is able to comprehend.
[2020-12-14 16:24] LABS: Ferritin 930 ng/mL (15-150); Iron 64 ug/dL (37-145)
[2020-12-14] MEDS: vancomycin 1,000 MG in sodium chloride 0.9% 250 ML 250 MG IV (17:16)
[2020-12-14] MEDS: pantoprazole 40 mg SDV IVP (17:16)
[2020-12-14 17:18] LABS: Basophils % 0.2 %; Eosinophils % 0.2 %; Hematocrit 26.3 % (37.0-47.0); Hemoglobin 8.3 g/dL (11.5-15.3); Lymphocytes # 0.1 10^3/uL (0.8-4.8); Lymphocytes % 0.9 %; Mean Corpuscular HGB Conc 31.6 g/dL (30.0-36.0); Mean Corpuscular Hemoglobin 28.4 pg (28.0-34.0); Mean Corpuscular Volume 90.1 fL (81-99); Monocytes # 0.4 10^3/uL (0.2-0.9); Neutrophils # 8.54 10^3/uL (1.8-7.7); Neutrophils % 92.4 %; Nucleated Red Blood Cells % 0.2 %; Platelet Count 184 10^3/cmm (130-400); Red Blood Count 2.92 10^6/uL (4.1-5.3); Red Cell Distribution Width 15.5 % (12.1-15.1); White Blood Count 9.2 10^3/uL (4.0-10.0)
[2020-12-14] MEDS: morphine 4 mg/mL SDV 1 mL 2 MG IVP (18:23)
--- NOTE | 2020-12-14 18:57 | PC.NURSE ---
Notes put in by Ashley WERNER checked by information writer
--- NOTE | 2020-12-14 19:34 | PC.NURSE ---
MAR shows Amiodarone is infused but is currently running at 1 mg/min, started at 1430 according to aba and reported to this nurse by off going nurse, ABA adjusted at this time to show 1 mg/min
--- NOTE | 2020-12-14 20:34 | PC.NURSE ---
Amiodarone titrated from 1 mg/min to 0.5 mg/min to protocol, unable to change in MAR due to MAR showing bag in infused
--- NOTE | 2020-12-14 20:39 | PC.NURSE ---
patient pulling off Bipap ECG leads and pulling at central line, not cooperating with staff, required PRN Ativan
[2020-12-14] MEDS: dexmedetomidine 400 MCG in sodium chloride 0.9% (100 ml) 100 ML 15.33 MCG IV (22:49)
--- NOTE | 2020-12-14 22:49 | PC.NURSE ---
Precedex running at 8 mcg/kg/hr at shift change, increased to 1 mcg/kg/hr per protocol
[2020-12-15] VITALS (63 sets, daily range): BP systolic 80–158; BP diastolic 61–93; PULSE 56–118; RESP 12–29; TEMP 36.3; O2SAT 73–100
[2020-12-15] MEDS: ipratropium-albuterol 3 mL Neb INHALATION ×4 (00:01→13:40)
[2020-12-15] MEDS: morphine 4 mg/mL SDV 1 mL 2 MG IVP ×6 (00:48→23:28)
[2020-12-15] MEDS: LORazepam 2 mg/mL INJ 1 mL IVP ×2 (02:40→19:29)
[2020-12-15] MEDS: enoxaparin 60 mg/0.6 mL Syringe SUBCUT (02:52)
--- NOTE | 2020-12-15 03:20 | PC.NURSE ---
this nurse attempting to wean off of precedex but patient becomes very restless, pulls off bipap and pulls at central line
[2020-12-15] MEDS: pantoprazole 40 mg SDV IVP ×2 (03:24→15:36)
[2020-12-15 04:02] LABS: Basophils % 0.3 %; Hematocrit 26.8 % (37.0-47.0); Hemoglobin 8.3 g/dL (11.5-15.3); Lymphocytes # 0.1 10^3/uL (0.8-4.8); Lymphocytes % 1.3 %; Mean Corpuscular Hemoglobin 27.9 pg (28.0-34.0); Mean Corpuscular Volume 89.9 fL (81-99); Mean Platelet Volume 11.4 fL (7.4-10.4); Monocytes # 0.3 10^3/uL (0.2-0.9); Monocytes % 3.8 %; Neutrophils # 8.29 10^3/uL (1.8-7.7); Neutrophils % 92.6 %; Nucleated Red Blood Cells % 0.3 %; Platelet Count 189 10^3/cmm (130-400); Red Blood Count 2.98 10^6/uL (4.1-5.3); Red Cell Distribution Width 15.5 % (12.1-15.1)
[2020-12-15 04:19] LABS: INR 1.27 (0.8-1.2)
[2020-12-15 04:22] LABS: Lactate (Lactic Acid level) 1.4 mmol/L (0.5-2.2); NT Pro B Type Natriuretic Pept 2959 pg/mL (0-125); Procalcitonin 0.35 ng/mL (0-0.5)
[2020-12-15 04:34] LABS: Alanine Aminotransferase 9 U/L (0-33); Alkaline Phosphatase 57 IU/L (35-105); Anion Gap 17.1 (5-19); Aspartate Amino Transferase 22 U/L (0-32); Blood Urea Nitrogen 31 mg/dL (8-23); C Reactive Protein 11.5 mg/L (0.0-4.9); Calcium 8.2 mg/dL (8.5-10.5); Carbon Dioxide 31 mmol/L (22-29); Chloride 93 mmol/L (98-107); Creatine Phosphokinase 39 U/L (26-192); Globulin 3.2 g/dL (1.3-4.6); Glucose 146 mg/dL (65-115); Magnesium 1.7 mg/dL (1.7-2.3); Osmolality Calculated 295 mOsm/kg (285-295); Phosphorus 2.3 mg/dL (2.5-4.5); Potassium 3.1 mmol/L (3.5-5.1); Sodium 138 mmol/L (136-145); Total Bilirubin 0.5 mg/dL (0.15-1.2); Total Protein 6.2 g/dL (6.6-8.7)
[2020-12-15] MEDS: piperacillin-tazobactam 3.375 GM in sodium chloride 0.9% (plus) 50 ML IV ×3 (04:44→20:51)
[2020-12-15 05:08] LABS: ABG PCO2 51.4 mmHg (35-45); ABG PH Result 7.43 (7.35-7.45); Base Excess ABG 8.8 mmol/L (-2.0-2.0); HCO3 ABG 34.4 mmol/L (22-26); PO2 ABG 99.3 mmHg (80.0-100.0)
[2020-12-15 05:09] LABS: BIPAP 16/8
--- NOTE | 2020-12-15 06:00 | ECG_ITS ---
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 Measurements Intervals [place] Rate: 92 P: 90 RI: 165 QRS: 69 QRSD: 78 T: 25 QT: 305 QTc: 379 Interpretive Statements SINUS RHYTHM LOW QRS VOLTAGE IN PRECORDIAL LEADS [QRS DEFLECTION < 1.0 mV IN CHEST LEADS] NONSPECIFIC ST & T-WAVE ABNORMALITY Compared to ECG 12/14/2020 15:18:26 No significant changes Electronically Signed On 12-16-2020 0:50:01 CDT by Aj Jaramillo M.D. [id number]
--- NOTE | 2020-12-15 07:00 | XRR_ITS ---
PROCEDURE INFORMATION: Exam: XR Chest Exam date and time: 12/15/2020 7:00 AM Age: 70 years old Clinical indication: Dyspnea; Additional info: SOB TECHNIQUE: Imaging protocol: XR of the chest. Views: 1 view. COMPARISON: CR XR chest 1V portable [id number] 12/14/2020 2:43 PM FINDINGS: A right IJ central line is seen with the tip overlying the SVC. Lungs: Unremarkable. No consolidation. Pleural spaces: Unremarkable. No pleural effusion. No pneumothorax. Heart/Mediastinum: Unremarkable. No cardiomegaly. Bones/joints: Unremarkable. XR/XR chest 1V portable [id number] IMPRESSION: No acute findings.
[2020-12-15] MEDS: dexmedetomidine 400 MCG in sodium chloride 0.9% (100 ml) 100 ML 12.27 MCG IV (07:21)
--- NOTE | 2020-12-15 08:02 | PC.NURSE ---
recd. sleeping. awakens easily. a/o to person, place, date, president.
--- NOTE | 2020-12-15 08:37 | CTR_ITS ---
PROCEDURE INFORMATION: Exam: CTA Chest With Contrast Exam date and time: 12/15/2020 8:37 AM Age: 70 years old Clinical indication: Condition or disease; Lung condition and disease; Pulmonary embolism; Attributes not specified; Additional info: Pe TECHNIQUE: Imaging protocol: Computed tomographic angiography of the chest with contrast. 3D rendering (Not supervised by radiologist): MIP and/or 3D reconstructed images were created by the technologist. Radiation optimization: All CT scans at this facility use at least one of these dose optimization techniques: automated exposure control; mA and/or kV adjustment per patient size (includes targeted exams where dose is matched to clinical indication); or iterative reconstruction. Contrast material: OMNI 350; Contrast volume: 56 ml; Contrast route: INTRAVENOUS (IV); COMPARISON: CT chest abd pel wo con 12/11/2020 3:48 AM RADIATION DOSE METRICS: Total DLP (mGy-cm): 565.89 FINDINGS: Pulmonary arteries: Normal. No pulmonary emboli. Aorta: There is calcification of the aorta but there is no aneurysm or dissection. Lungs: There are innumerable noncalcified pulmonary nodules bilaterally. The of not significantly changed since the previous scan from 12/11/2020. They measure up to 8-9 mm in diameter There is subsegmental atelectasis in the lung bases. There is a 4.7 cm ovoid bullous that has developed in the medial left lung base. Pleural spaces: Unremarkable. No pneumothorax. No pleural effusion. Heart: Heart is not enlarged. There is coronary artery calcification. Lymph nodes: Unremarkable. No enlarged lymph nodes. Gallbladder and bile ducts: Cholelithiasis. Normal bile ducts. Bones/joints: Chronic degenerative changes are present in the spine with scattered sclerosis and osteophytes. There are old mild endplate compression fractures. Soft tissues: Unremarkable. CT/CT angio chest PE protcl [id number] IMPRESSION: 1. No evidence of pulmonary embolus or aortic aneurysm/dissection. 2. Coronary artery calcification. 3. Cholelithiasis. 4. Innumerable stable noncalcified pulmonary nodules. For patients at low risk (minimal or absent history of smoking and of other known risk factors), recommend CT Chest at 3-6 months, then consider CT Chest at 18-24 months. For patients at high risk (history of smoking or of other known risk factors), recommend CT Chest at 3-6 months, then CT Chest at 18-24 months. (Reference: Cristina) 5. Since the previous examination the patient has developed a 4.7 cm bullous in the left lower lobe. REFERENCES: Cristina Collins, et al. Guidelines for Management of Incidental Pulmonary Nodules Detected on CT Images: From the Fleischner Society 2017. Radiology. 2017;284(1):228-243. Radiation Dose CTDIVOL = (mGy): DLP = 565.89 (mGy-cm)
--- NOTE | 2020-12-15 09:28 | PC.CHAP ---
Pastoral Care Encounter/Spiritual Assessment Type of Contact [] Declined vehicle safety inspector visit [] Patient/Family/Request visit [] Outpatient visit [] Follow-up visit [] Physician referral [] Code/Alert [x] Routine visit [] Staff referral [] Actively dying [x] Patient sleeping [] Family support [] [] Out of room [] Palliative care [] [] Receiving care in room [] Pre-surgical visit [] Trauma [] Long length of stay [x] ICU visit [x] Other: ventilator Relational/Emotional Strength [] Patient feels connected with others/family/visitors/staff [] Distress [] Loneliness/isolation [] Abandonment Spirituality of Patient [] Person of [place] [] Attends Evangelical of their [place] [] Believes in Prayer [] Reads Bible or Yazdanism materials [] There are Spiritual issues to be addressed Day Trader Interventions [x] Prayer [] Active listening [] Non-anxious presence [] Spiritual/emotional support [] Crisis/trauma care [] Spiritual counseling [] Bereavement support [] Provided bereavement packet [] Provided Bible/devotional materials [] Provided toy/stuffed animal, coloring book to patient or family member [] Provided Communion [] Anointing/[place] [] Salvation [x] Completed spiritual assessment [] Other: Impact on Illness or Injury [] Angry [] Fearful [] Anxious [] Often cries [] Exhaustion [] Unable to work [] Unable to attend caodaism [] Unable to walk/stand [] Unable to read [] Unable to drive [] Unable to eat/drink [] Unable to sleep [] Unable to be with family [] Patient intubated [] Other: Summary Time spent with patient
[2020-12-15] MEDS: iohexol 350 mg/mL 100 mL Btl IV (09:41)
[2020-12-15] MEDS: FUROsemide 10 mg/mL SDV 4mL 40 MG IVP (09:57)
--- NOTE | 2020-12-15 12:41 | PC.NURSE ---
1240. amiodarone off. precedex to 0.6
[2020-12-15 13:53] LABS: Blood Gas Sample Site Brachial, right; Blood Gas Sample Type Arterial; Oxygen Device BIPAP
[2020-12-15 14:08] LABS: ABG PCO2 49.1 mmHg (35-45); ABG PH Result 7.44 (7.35-7.45); Alveolar-Arterial Oxygen Gradi 8.7 mmHg (5-10); Arterial Blood Gas Hematocrit 28.8 % (37-47); Base Excess ABG 7.9 mmol/L (-2.0-2.0); Blood Gas Allen Test Pos; Blood Gas Operator Identificat BD; Blood Gas Sample Site Brachial, right; Blood Gas Sample Type Arterial; Carboxyhemoglobin 0.8 %THgb (0.4-20.1); HCO3 ABG 33.1 mmol/L (22-26); HGB O2 Sat 95.5 % (95-100); Ionized Calcium Level - ABG 1.2 mmol/L (1.1-1.4); Methemoglobin 0.8 % (0.4-1.5); Oxygen Device BIPAP; Oxygen Saturation ABG 97.1; PO2 ABG 87.2 mmHg (80.0-100.0); Potassium Level - ABG 3.2 mmol/L (3.5-5.0); Total Hemoglobin 9.4 g/dL (12-16)
--- NOTE | 2020-12-15 15:12 | PC.NURSE ---
becoming more restless. pulling clothes off, taking cpap off. physician notified. back to 1.
[2020-12-15] MEDS: vancomycin 1,000 MG in sodium chloride 0.9% 250 ML 250 MG IV (15:36)
[2020-12-15] MEDS: dexmedetomidine 400 MCG in sodium chloride 0.9% (100 ml) 100 ML 9.2 MCG IV (15:58)
[2020-12-15] MEDS: metoprolol tartrate 1 mg/1 mL SDV 5 mL 5 MG IV (16:01)
--- NOTE | 2020-12-15 16:02 | P.PN_ITS ---
Subjective Subjective: Interval history: This morning patient was examined, she continues to remain on BiPAP, she continues to have episodes of agitation requiring Precedex, she does not respond to her name, does not open her eyes to commands, but when I asked her to squeeze my finger she did so, she did not follow any other commands, she does refuse eye opening, she does withdraw from pain, she remained afebrile overnight, normotensive, currently in normal sinus rhythm Vitals/I&O/Wt Last Vital Signs Temp 98.2 F 12/14/20 07:30 Pulse 82 12/15/20 13:55 Resp 15 12/15/20 13:55 BP 141/77 12/15/20 09:00 Pulse Ox 98 12/15/20 13:55 12/15/20 12/15/20 12/15/20 06:59 14:59 22:59 Intake Total 154 / 1089.938 374.0507 / 221.8349 29.9 / 251.7349 Output Total 350 / 1350 Balance -196 / -260.470 997.9846 / 221.8349 29.9 / 251.7349 Physical Exam Const: COMMON NORMALS: no acute distress and alert ORIENTATION/CONSCIOUSNESS: Yes awake and Yes confused; not oriented to person, not oriented to place and not oriented to time Resp: COMMON NORMALS: normal respiratory effort, No retractions, No use of accessory muscles and clear to auscultation bilaterally AUSCULTATION: clear to auscultation bilaterally Cardio: COMMON NORMALS: regular rate, regular rhythm, S1 normal heart sound present and S2 normal heart sound present RATE: regular rate RHYTHM: regular rhythm HEART SOUNDS: S1 normal heart sound present and S2 normal heart sound present GI: COMMON NORMALS: Normal to inspection, nondistended, normoactive bowel sounds present and Soft to palpation INSPECTION: Yes abdominal distension PALPATION: Yes Soft to palpation Extremity: COMMON NORMALS: no pedal edema Neuro: SENSORIUM/ORIENTATION: Yes alert, No oriented to person, No oriented to place and No oriented to time Urinary Catheter Management^: [place]: Cath Placed During This Visit: yes Reason for Continuing Indwelling Catheter: Accurate Measurement of Urinary Output in Critically Ill Patients Urinary Catheter Date of Insertion: 12/11/20 Urinary Catheter Time of Insertion: 13:26 Data : 12/15/20 02:45 12/15/20 02:45 A&P Assessment and plan (1) Sudden cardiac arrest: S/P Cardiac Arrest, with acute respiratory failure, with acute enceph alopathy With acute respiratory failure secondary to chf Suspicious for underlying cardiac etiology, fluid overload, sepsis Patient experienced sudden cardiac arrest, while undergoing VQ scan.During the code she received 2 epi, 1 amp of bicarb.It Was a PEA arrest.High-quality chest compressions was done.Patient was intubated during the code. ROSC was achieved. Postcode she was on Versed and fentanyl, as well as Levophed as she was Hypotensive. Post code Labs were ordered. ( CBC, CMP, Blood culture,ABG, EKG, Troponin ). EKG: SINUS TACHYCARDIA V/Q Scan: Indeterminate and essentially nondiagnostic evaluation for pulmonary embolism by VQ scan. Nondiagnostic evaluation is due to significant underlying chronic lung disease. There are multiple areas of matched and minimally unmatched defects. Majority of these defects are matched and related to emphysema. However given her PA, history of vaginal cancer, she is high risk of hypercoagulability, high risk of PE, started on therapeutic Lovenox, CT angiogram ordered, bilateral extremity ultrasound for DVT C.T head without contrast : 1. Mild right maxillary sinus disease. 2. No acute intracranial findings. 2D Echo : Technically difficult study, repeat echo with contrast a poor quality study CT angiogram of the head shows no evidence of pulmonary emboli, no aortic aneurysm or dissection, coronary calcification, innumerable stable noncalcified pulmonary nodules Abx Coverage was broadened to vancomycin and Zosyn S/P Extubation to BIPAP toda 12/13/2020 . Currently she is on : 16/8 FIO2: 30 %. Currently maintaining her airway, is 0.8 on Precedex, if her mentation deteriorates, or she becomes hypoxic will need to transition to comfort care Episode of SVT on 12/14/2020 but seems more like atrial flutter, status post 6 mg adenosine, 12 mg adenosine, 5 mg of IV metoprolol, received bolus of amiodarone, currently on amiodarone drip, which will be weaned off as a normal sinus rhythm, 5 mg IV pushes of metoprolol every 4 hours as needed for heart rate greater than 120 Currently with acute encephalopathy, secondary to hypoxic respiratory failure, sepsis, Continue aspirin, statin Continue Lasix 40 mg IV push daily, +673 Continue Precedex drip at 0.8 anemia, hgb 8.3, protonix 40mg IV daily Currently GCS Is :10 Full code Lovenox for DVT prophylaxis patient's daughter Paulina, had a discussion with the family, they will not like h er mother to have chest compressions, they would not like her mother to be intubated, they would like her to be DNR/DNI, the above all do not want her mother to suffer, for now they want us to continue interventions, however if she starts to deteriorate, or starts to suffer in pain, they would like us to manage her through comfort care, however they would like a call before this were to happen. I advised family we will continue medical interventions continue BiPAP, continue to monitor respiratory status, if she starts to deteriorate we will give them a call, and start full comfort care, currently we are doing a partial comfort care, giving her morphine for pain, Ativan for anxiety, continue medical interventions.We are awaiting another family meeting from out of town to see patient. For now continue medical interventions, if she starts to deteriorate, can will consider full comfort care, awaiting family member from out of town Status: Acute (2) Sepsis: Sepsis currently source unkown: Lactic acid : 3.5-->1.1 Procal:0.57 Blood Culture : NTD C.T Abdomen and Pelvis : There are no acute abdominal finding Xray chest : Patchy bibasilar atelectasis or other infiltrates. Urine Legionella antigen :Negative Bacterail antigen panel : Negative MRSA PCR : Pending Vancomycin Zosyn Status: Acute (3) UTI (urinary tract infection): Status: Acute (4) ONEL (acute kidney injury): Likely prerenal 2/2 to sever dehydration,cannot rule out ATN 2/2 to hypotension. Improving Monitor BMP C.T Abdomen and pelvis has failed to show any obstructive uropathy. Urine electrolytes Status: Acute (5) Hyperkalemia: Resolved post hyperkalemia cocktail Monitor BMP Status: Acute (6) Respiratory failure, chronic: Chronic Hypoxic R/F:2/2 COPD.Uses 3ls oxygen at home. 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 By clinical evaluation, her disease is stage at least III (T2b, N1, M0) and possibly stage IV, depending on the status of the retroperitoneal lymph nodes. -pulmonary metastatic and bone metastatic - A PET/CT ordered on October 31, 2020 (independently visualized in [facility]) demonstrated the vaginal primary carcinoma (SUV 21.8), extensive hypermetabolic bilateral pelvic adenopathy (left obturator, bilateral pelvic fossa, left common iliac, and right periaortic lymphadenopathy), bilateral FDG positive pulmonary nodules, and osseous lesions in the medial left scapula, 12th thoracic vertebral body, right ilium, sacrum, and posterior left acetabulum. -receiving palliative radiation therapy -prognosis is overall poor Status: Acute (10) Acute encephalopathy: Status: Acute Additional A&P Information Acute on chronic anemia, hemoglobin 8.6, continue to monitor hemoglobin closely as patient will be on therapeutic Lovenox, Hemoccult stool, iron studies -Possible slow GI bleed, continue Protonix, iron studies as above, monitor hemoglobin ONEL with hyperkalemia Clinically looks dehydrated continue normal saline fluid resuscitation, hold n ephrotoxic agents, Considering high creatinine I would also hold cyclobenzaprine She has high BNP however clinically looks extremely dehydrated chest x-ray does not show fluid overload signs Sinus rhythm on EKG We will give her calcium gluconate and Kayexalate, insulin and D50 Full code Cardiac diet DVT prophylaxis Heparin Attestations Medical Necessity Statement*: Patient requires hospitalization for acute respiratory failure, acute encephalopathy, Coding Level of Care Code Acute Global Marketing Manager for [facility] Fwd Diagnoses Sudden cardiac arrest I46.9 Sepsis A41.9 UTI (urinary tract infection) N39.0 ONEL (acute kidney injury) N17.9 Hyperkalemia E87.5 Respiratory failure, chronic J96.10 SVT (supraventricular tachycardia) I47.1 Acute respiratory failure J96.00 Vaginal cancer C52 Acute encephalopathy G93.40
--- NOTE | 2020-12-15 19:12 | PC.NURSE ---
family expected tomorrow.
[2020-12-15] MEDS: atorvastatin 40 mg Tablet 80 MG PO (20:51)
[2020-12-15] MEDS: dexmedetomidine 400 MCG in sodium chloride 0.9% (100 ml) 100 ML 15.33 MCG IV (23:39)
[2020-12-16] VITALS (42 sets, daily range): BP systolic 92–155; BP diastolic 53–87; PULSE 53–137; RESP 13–29; TEMP 36.3–36.6; O2SAT 75–100
[2020-12-16] MEDS: enoxaparin 40 mg/0.4 mL Syringe SUBCUT (01:34)
[2020-12-16] MEDS: morphine 4 mg/mL SDV 1 mL 2 MG IVP ×3 (01:35→10:25)
[2020-12-16] MEDS: LORazepam 2 mg/mL INJ 1 mL IVP ×4 (02:29→17:43)
[2020-12-16] MEDS: pantoprazole 40 mg SDV IVP (04:33)
[2020-12-16] MEDS: piperacillin-tazobactam 3.375 GM in sodium chloride 0.9% (plus) 50 ML IV (04:33)
[2020-12-16 04:54] LABS: ABG PCO2 58.7 mmHg (35-45); ABG PH Result 7.44 (7.35-7.45); Arterial Blood Gas Hematocrit 33.3 % (37-47); Base Excess ABG 13.2 mmol/L (-2.0-2.0); Blood Gas Sample Type Arterial; HCO3 ABG 39.5 mmol/L (22-26); PO2 ABG 99.1 mmHg (80.0-100.0)
[2020-12-16 04:55] LABS: Blood Gas LPM 2.5 %; Blood Gas Sample Site Brachial, right; Oxygen Device NC
--- NOTE | 2020-12-16 05:09 | PC.NURSE ---
shift summary, reacquired multiple PRN ativan and morphine doses as seen on AUG for restlessness, pulling at leads and central line and facial grimacing/moaning
[2020-12-16 05:38] LABS: Basophils % 0.1 %; Hematocrit 26.8 % (37.0-47.0); Hemoglobin 8.3 g/dL (11.5-15.3); Lymphocytes # 0.1 10^3/uL (0.8-4.8); Lymphocytes % 1.4 %; Mean Corpuscular Hemoglobin 28.1 pg (28.0-34.0); Mean Corpuscular Volume 90.8 fL (81-99); Mean Platelet Volume 11.1 fL (7.4-10.4); Monocytes # 0.5 10^3/uL (0.2-0.9); Monocytes % 5.3 %; Neutrophils # 7.76 10^3/uL (1.8-7.7); Neutrophils % 90.9 %; Nucleated Red Blood Cells % 0 %; Platelet Count 178 10^3/cmm (130-400); Red Blood Count 2.95 10^6/uL (4.1-5.3); Red Cell Distribution Width 15.8 % (12.1-15.1); White Blood Count 8.5 10^3/uL (4.0-10.0)
[2020-12-16 05:50] LABS: Lactate (Lactic Acid level) 0.9 mmol/L (0.5-2.2)
[2020-12-16 05:51] LABS: INR 1.35 (0.8-1.2)
--- NOTE | 2020-12-16 06:00 | ECG_ITS ---
[facility] Test Date: 2020-12-16 Pat Name: Adrianna Donaldson Department: Room: [facility] Gender: Female Hospital Internship: : 1950 Requested By: Wilian Aguilar Order Number: [id number] Roger MD: Ary Gardner M.D. Measurements Intervals [place] Rate: 72 P: 75 CA: 184 QRS: 56 QRSD: 79 T: -23 QT: 391 QTc: 428 Interpretive Statements SINUS RHYTHM LOW QRS VOLTAGE IN PRECORDIAL LEADS [QRS DEFLECTION < 1.0 mV IN CHEST LEADS] NONSPECIFIC T-WAVE ABNORMALITY Compared to ECG 12/15/2020 03:54:34 No significant changes Electronically Signed On 12-17-2020 7:21:43 CDT by Ary Gardner M.D. [id number]
[2020-12-16] MEDS: dexmedetomidine 400 MCG in sodium chloride 0.9% (100 ml) 100 ML 15.33 MCG IV (06:07)
[2020-12-16 06:08] LABS: NT Pro B Type Natriuretic Pept 2739 pg/mL (0-125); Procalcitonin 0.11 ng/mL (0-0.5)
[2020-12-16 06:19] LABS: Alanine Aminotransferase 9 U/L (0-33); Albumin Level 2.9 g/dL (3.5-5.2); Alkaline Phosphatase 50 IU/L (35-105); Anion Gap 10.1 (5-19); Aspartate Amino Transferase 18 U/L (0-32); Blood Urea Nitrogen 29 mg/dL (8-23); C Reactive Protein 6.7 mg/L (0.0-4.9); Calcium 7.9 mg/dL (8.5-10.5); Carbon Dioxide 37 mmol/L (22-29); Chloride 97 mmol/L (98-107); Creatine Phosphokinase 22 U/L (26-192); Globulin 2.8 g/dL (1.3-4.6); Glucose 129 mg/dL (65-115); Magnesium 1.8 mg/dL (1.7-2.3); Osmolality Calculated 300 mOsm/kg (285-295); Phosphorus 3.5 mg/dL (2.5-4.5); Potassium 3.1 mmol/L (3.5-5.1); Sodium 141 mmol/L (136-145); Total Bilirubin 0.5 mg/dL (0.15-1.2); Total Protein 5.7 g/dL (6.6-8.7)
[2020-12-16] MEDS: lidocaine 1% 5 ML in potassium chloride premix 100 ML 25 ML IV (09:23)
[2020-12-16] MEDS: FUROsemide 10 mg/mL SDV 4mL 40 MG IVP (09:24)
--- NOTE | 2020-12-16 09:36 | PC.CHAP ---
Pastoral Care Encounter/Spiritual Assessment Type of Contact [] Declined typing office worker visit [] Patient/Family/Request visit [] Outpatient visit [] Follow-up visit [] Physician referral [] Code/Alert [x] Routine visit [] Staff referral [] Actively dying [] Patient sleeping [] Family support [] [] Out of room [] Palliative care [] [] Receiving care in room [] Pre-surgical visit [] Trauma [] Long length of stay [x] ICU visit [x] Other: isolated Relational/Emotional Strength [] Patient feels connected with others/family/visitors/staff [] Distress [] Loneliness/isolation [] Abandonment Spirituality of Patient [] Person of [place] [] Attends Moravian of their [place] [] Believes in Prayer [] Reads Bible or Baptism materials [] There are Spiritual issues to be addressed Cupola Tender Helper Interventions [x] Prayer [] Active listening [] Non-anxious presence [] Spiritual/emotional support [] Crisis/trauma care [] Spiritual counseling [] Bereavement support [] Provided bereavement packet [] Provided Bible/devotional materials [] Provided toy/stuffed animal, coloring book to patient or family member [] Provided Communion [] Anointing/[place] [] Salvation [x] Completed spiritual assessment [] Other: Impact on Illness or Injury [] Angry [] Fearful [] Anxious [] Often cries [] Exhaustion [] Unable to work [] Unable to attend christianity [] Unable to walk/stand [] Unable to read [] Unable to drive [] Unable to eat/drink [] Unable to sleep [] Unable to be with family [] Patient intubated [] Other: Summary Time spent with patient
--- NOTE | 2020-12-16 11:56 | PC.NUTR ---
Nutrition assessment completed for LOS day 5. No PO intake X 5 days, Cardiac diet remains in place. Nurse stated to this RD that pt has swallowing difficulty/choking risk. Recommend NPO status if pt unable to safely consume oral diet, with consideration of nutrition support only if consistent with pt's plan of care. If able to consume oral diet, recommend GUN FITTER evaluation and liberalization to Regular diet with Ensure Plus TID to optimize po intakes, at texture/consistency recommended per GUN FITTER. Requested clarification of diet order from Dr. Aguilar at this time. See RD assessment for further details.
--- NOTE | 2020-12-16 12:53 | PC.NURSE ---
daughter here. discussed condition with dr. schumacher. will transition to comfort care with hospice.
[2020-12-16] MEDS: morphine 4 mg/mL SDV 1 mL IVP ×3 (13:21→20:42)
--- NOTE | 2020-12-16 15:14 | P.PN_ITS ---
Subjective Subjective: Interval history: Patient was seen this morning, she is on 3 to 4 L nasal cannula, she is moaning, she sounds like she is in pain, she does not follow commands, she does withdraw from the light, she does not withdraw from pain, she does not follow commands, she does not open her eyes to her namE, remained afebrile overnight, normotensive, did develop have episodes of sinus tachycardia heart rates in the 120s I had a meeting with patient's next of kin Paulina, at bedside, I confirmed that patient does not have any other next of kin, Paulina is her next decision-maker, currently advised that she has encephalopathy likely secondary to hypoxia, possible neurologic injury from hypoxia from her cardiac arrest, we are treating her fluid overload with Lasix, there is no evidence of pulmonary emboli, she is getting broad-spectrum antibiotic therap, I discussed options are available including continue medical intervention pursuing PEG tube placement versus pursuing full comfort care hospice Discussed the risks and benefits of each of the options available, she voiced understanding, all questions answered, agreed to proceed with comfort care/hospice. After discussion the risks and benefits of hospice, she voiced understanding, all questions answered, agreed to proceed with hospice. She tells me that she did know how extensive her cancer was, and that when she card iac arrested a few days ago if she had known how extensive her cancer was she would not of wanted her mother to be brought back. She tells me that she just wants her mother to be comfortable, she wants us to ease her pain and ease her suffering, she is agreeable for her to go to her senior living on hospice Vitals/I&O/Wt Last Vital Signs Temp 97.4 F L 12/15/20 11:00 Pulse 126 H 12/16/20 12:30 Resp 29 H 12/16/20 12:00 BP 101/64 12/16/20 14:30 Pulse Ox 75 L 12/16/20 13:00 12/16/20 12/16/20 12/16/20 06:59 14:59 22:59 Intake Total 388.505 / 1044.2399 482.321 / 482.321 Output Total 700 / 2300 1100 / 1100 Balance -311.495 / -1255.7601 -617.679 / -617.679 Physical Exam Narrative: EXAM NARRATIVE: She does withdraw from the light, she does not withdraw from pain, she is moaning, she sounds like she is in pain, she is restless, saturating high 90s on 3 L Resp: COMMON NORMALS: normal respiratory effort, No retractions and No use of accessory muscles AUSCULTATION: wheezes Cardio: COMMON NORMALS: regular rate, regular rhythm, S1 normal heart sound present and S2 normal heart sound present RATE: regular rate RHYTHM: regular rhythm HEART SOUNDS: S1 normal heart sound present and S2 normal heart sound present GI: COMMON NORMALS: Normal to inspection, nondistended, normoactive bowel sounds present, Soft to palpation and non-tender PALPATION: Yes Soft to palpation Extremity: COMMON NORMALS: normal to inspection Urinary Catheter Management^: [place]: Cath Placed During This Visit: yes Reason for Continuing Indwelling Catheter: Accurate Measurement of Urinary Outp ut in Critically Ill Patients Urinary Catheter Date of Insertion: 12/11/20 Urinary Catheter Time of Insertion: 13:26 Data : 12/16/20 05:05 12/16/20 05:05 Micro: Microbiology 12/11/20 06:49 Blood Culture - Final Blood NO GROWTH AFTER 5 DAYS 12/11/20 06:40 Blood Culture - Final Blood NO GROWTH AFTER 5 DAYS A&P Assessment and plan (1) Sudden cardiac arrest: Proceeding with comfort care, hospice Start comfort care S/P Cardiac Arrest, with acute respiratory failure, with acute encephalopathy With acute respiratory failure secondary to chf Suspicious for underlying cardiac etiology, fluid overload, sepsis Patient experienced sudden cardiac arrest, while undergoing VQ scan.During the code she received 2 epi, 1 amp of bicarb.It Was a PEA arrest.High-quality chest compressions was done.Patient was intubated during the code. ROSC was achieved. Postcode she was on Versed and fentanyl, as well as Levophed as she was Hypotensive. Post code Labs were ordered. ( CBC, CMP, Blood culture,ABG, EKG, Troponin ). EKG: SINUS TACHYCARDIA V/Q Scan: Indeterminate and essentially nondiagnostic evaluation for pulmonary embolism by VQ scan. Nondiagnostic evaluation is due to significant underlying chronic lung disease. There are multiple areas of matched and minimally unmatched defects. Majority of these defects are matched and related to emphysema. However given her PA, history of vaginal cancer, she is high risk of hypercoagulability, high risk of PE, started on therapeutic Lovenox, CT angiogram ordered, bilateral extremity ultrasound for DVT C.T head without contrast : 1. Mild right maxillary sinus disease. 2. No acute intracranial findings. 2D Echo : Technically difficult study, repeat echo with contrast a poor quality study CT angiogram of the head shows no evidence of pulmonary emboli, no aortic aneurysm or dissection, coronary calcification, innumerable stable noncalcified pulmonary nodules Abx Coverage was broadened to vancomycin and Zosyn S/P Extubation to BIPAP toda 12/13/2020 . Currently she is on : 16/8 FIO2: 30 %. Currently maintaining her airway, is 0.8 on Precedex, if her mentation deteriorates, or she becomes hypoxic will need to transition to comfort care Episode of SVT on 12/14/2020 but seems more like atrial flutter, status post 6 mg adenosine, 12 mg adenosine, 5 mg of IV metoprolol, received bolus of amiodarone, currently on amiodarone drip, which will be weaned off as a normal sinus rhythm, 5 mg IV pushes of metoprolol every 4 hours as needed for heart rate greater than 120 Currently with acute encephalopathy, secondary to hypoxic respiratory failure, sepsis, Continue aspirin, statin Continue Lasix 40 mg IV push daily, +673 Continue Precedex drip at 0.8 anemia, hgb 8.3, protonix 40mg IV daily Currently GCS Is :10 Full code Lovenox for DVT prophylaxis patient's daughter Paulina, had a discussion with the family, they will not like her mother to have chest compressions, they would not like her mother to be intubated, they would like her to be DNR/DNI, the above all do not want her mother to suffer, for now they want us to continue interventions, however if she starts to deteriorate, or starts to suffer in pain, they would like us to manage her through comfort care, however they would like a call before this were to happen. I advised family we will continue medical interventions continue BiPAP, continue to monitor respiratory status, if she starts to deteriorate we will give them a call, and start full comfort care, currently we are doing a partial comfort care, giving her morphine for pain, Ativan for anxiety, continue medical interventions.We are awaiting another family meeting from out of town to see patient. For now continue medical interventions, if she starts to deteriorate, can will consider full comfort care, awaiting family member from out of town Status: Acute (2) Sepsis: Sepsis currently source unkown: Lactic acid : 3.5-->1.1 Procal:0.57 Blood Culture : NTD C.T Abdomen and Pelvis : There are no acute abdominal finding Xray chest : Patchy bibasilar atelectasis or other infiltrates. Urine Legionella antigen :Negative Bacterail antigen panel : Negative MRSA PCR : Pending Vancomycin Zosyn Status: Acute (3) UTI (urinary tract infection): Status: Acute (4) ONEL (acute kidney injury): Likely prerenal 2/2 to sever dehydration,cannot rule out ATN 2/2 to hy potension. Improving Monitor BMP C.T Abdomen and pelvis has failed to show any obstructive uropathy. Urine electrolytes Status: Acute (5) Hyperkalemia: Resolved post hyperkalemia cocktail Monitor BMP Status: Acute (6) Respiratory failure, chronic: Chronic Hypoxic R/F:2/2 COPD.Uses 3ls oxygen at home. 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 By clinical evaluation, her disease is stage at least III (T2b, N1, M0) and possibly stage IV, depending on the status of the retroperitoneal lymph nodes. -pulmonary metastatic and bone metastatic - A PET/CT ordered on October 31, 2020 (independently visualized in [facility]) demonstrated the vaginal primary carcinoma (SUV 21.8), extensive hypermetabolic bilateral pelvic adenopathy (left obturator, bilateral pelvic fossa, left common iliac, and right periaortic lymphadenopathy), bilateral FDG positive pulmonary nodules, and osseous lesions in the medial left scapula, 12th thoracic vertebral body, right ilium, sacrum, and posterior left acetabulum. -receiving palliative radiation therapy -prognosis is overall poor Status: Acute (10) Acute encephalopathy: Status: Acute Additional A&P Information Acute on chronic anemia, hemoglobin 8.6, continue to monitor hemoglobin closely as patient will be on therapeutic Lovenox, Hemoccult stool, iron studies -Possible slow GI bleed, continue Protonix, iron studies as above, monitor hemoglobin ONEL with hyperkalemia Clinically looks dehydrated continue normal saline fluid resuscitation, hold nephrotoxic agents, Considering high creatinine I would also hold cyclobenzaprine She has high BNP however clinically looks extremely dehydrated chest x-ray does not show fluid overload signs Sinus rhythm on EKG We will give her calcium gluconate and Kayexalate, insulin and D50 Full code Cardiac diet DVT prophylaxis Heparin Attestations Medical Necessity Statement*: PROCEEDING WITH COMFORT CARE/HOSPICE Coding Level of Care Code Acute Customer Sales Specialist for g Fwd Diagnoses Sudden cardiac arrest I46.9 Sepsis A41.9 UTI (urinary tract infection) N39.0 ONEL (acute kidney injury) N17.9 Hyperkalemia E87.5 Respiratory failure, chronic J96.10 SVT (supraventricular tachycardia) I47.1 Acute respiratory failure J96.00 Vaginal cancer C52 Acute encephalopathy G93.40
--- NOTE | 2020-12-16 15:45 | PC.NURSE ---
0900 note large round, somewhat firm area area marked. dr. schumacher made aware of, pressure dressing applied, as area appears to be hematoma.
--- NOTE | 2020-12-16 15:54 | PC.NURSE ---
1500 pressure dressing removed from right arm and warm compress applied, but unaaround.ble to keep on pts arm d/t her moving arm
--- NOTE | 2020-12-16 16:12 | PC.SOCIAL ---
IMM updated IMM updated with daughter at bedside. Initialled, dated, timed and placed in chart.
--- NOTE | 2020-12-16 17:29 | PC.NURSE ---
transferred to 261. with belongings. daughter went to friends house
--- NOTE | 2020-12-16 17:34 | PC.SLP ---
Physician requests no AUTOMATIC GRINDER OPERATOR eval for swallowing at this time.
[2020-12-17] VITALS (7 sets, daily range): BP systolic 116–136; BP diastolic 64–85; PULSE 80–138; RESP 16–28; TEMP 36.4–36.6; O2SAT 74–93
[2020-12-17] MEDS: morphine 4 mg/mL SDV 1 mL IVP ×3 (01:53→11:31)
[2020-12-17] MEDS: LORazepam 2 mg/mL INJ 1 mL IVP ×3 (01:53→14:59)
--- NOTE | 2020-12-17 13:10 | P.DS_ITS ---
Discharge Providers Date of Admission: 12/11/20 03:00 Date of Discharge: December 17, 2020 Attending Provider at Admission: Nolvia Katz MD Attending Provider at Discharge: Wilian Aguilar MD Primary Care Provider: Ismael Malcolm MD Diagnoses at Discharge Discharge Diagnosis (1) Sudden cardiac arrest: Status: Acute (2) Sepsis: Status: Acute (3) UTI (urinary tract infection): Status: Acute (4) ONEL (acute kidney injury): Status: Acute (5) Hyperkalemia: Status: Acute (6) Respiratory failure, chronic: Status: Acute (7) SVT (supraventricular tachycardia): Status: Acute (8) Acute respiratory failure: Status: Acute (9) Vaginal cancer: Status: Acute (10) Acute encephalopathy: Status: Acute Reason for Visit Reason for Visit: RESP. DISTRESS Hospital Course Hospital Course This is a 70-year-old female with a past medical history of metastatic vaginal cancer, status post palliative radiation therapy, oxaliplatin COPD, hypothyroidism, vertebral compression fracture, who presents from in local half-way due to complaints of respiratory distress Patient was admitted to [facility] for acute respiratory failure, acute encephalopathy secondary to fluid overload, pulmonary edema, COPD exacerbation, with sepsis secondary to pneumonia and UTI. On hospital admissio n, patient suffered cardiac arrest while undergoing a ventilation/perfusion scan, received 2 of epi, 1 amp of bicarb, it was PEA arrest, received high- quality CPR, was intubated, ROSC was achieved, placed on sedation, patient was moved to the ICU. Patient received broad-spectrum antibiotic therapy, diuretic therapy, anticoagulant therapy, steroids, and clinically monitored. Patient was extubated on 12/13/2020, onto BiPAP, however patient remained BiPAP dependent for the next 48 hours, eventually weaned to 3 L nasal cannula. Patient continued to receive broad-spectrum antibiotic therapy, diuretic regimen therapy, steroid therapy, cultures so far have been unremarkable, CT angiogram of the chest did not show acute pulmonary emboli, multiple echocardiogram studies were difficult to ascertain due to poor quality window. Unfortunately since her extubation patient did not fully follow commands, would not withdraw from pain, pupil were equal round reactive to light. She continued to have encephalopathy, CT of the head did not have any acute findings, findings were concerning for anoxic brain injury and/or hypoxia as a role for her persistent encephalopathy. I had discussion with family, patient's next of kin Paulina, about pursuing further testing including EEG, MRI of the brain, cardiac stress test, after discussion of the risks and benefits of each test, they voiced understanding, all questions answered, declined further testing and evaluation. After extensive discussion with patient's next of kin, her Sister Paulina, given her underlying metastatic vaginal cancer, her poor functional status at the half-way, decision was made to pursue comfort care. Patient was made comfort care as inpatient, transitioned to half-way on hospice. Physical Exam Const: GENERAL APPEARANCE: lethargic, ill appearing and frail appearing ORIENTATION/CONSCIOUSNESS: Yes awake, Yes confused and Yes lethargic; not oriented to person, not oriented to place and not oriented to time Resp: EFFORT & INSPECTION: Yes tachypneic and Yes labored AUSCULTATION: crackles Cardio: COMMON NORMALS: regular rate, regular rhythm, S1 normal heart sound present and S2 normal heart sound present RATE: regular rate RHYTHM: regular rhythm HEART SOUNDS: S1 normal heart sound present and S2 normal heart sound present GI: COMMON NORMALS: Normal to inspection, nondistended, normoactive bowel sounds present and Soft to palpation PALPATION: Yes Soft to palpation Extremity: COMMON NORMALS: no pedal edema Neuro: SENSORIUM/ORIENTATION: No oriented to person, No oriented to place, No oriented to time and Yes lethargic Urinary Catheter Management^: [place]: Cath Placed During This Visit: yes Reason for Continuing Indwelling Catheter: Hospice/Comfort/Palliative Care Urinary Catheter Date of Insertion: 12/11/20 Urinary Catheter Time of Insertion: 13:26 Discharge Data Data Completed and Pending: Completed Studies During Hospitalization Category Date Time Status CT angio chest PE protcl 02144 Stat Cat Scan 12/15/20 08:[address] chest abd pel wo con Urgent Cat Scan 12/11/20 03:[address] head wo con* 7 0450 Routine Cat Scan 12/13/20 21:00 Completed XR chest 1V awilda ble 62295 Routine Exams 12/14/20 14:28 Completed XR chest 1V awilda ble 24540 Routine Exams 12/15/20 07:00 Completed XR chest 1V awilda ble 03088 Stat Exams 12/13/20 01:57 Completed XR chest 1V awilda ble 52038 Urgent Exams 12/11/20 01:27 Completed NM pul vent and p erfus* [id number] Routi ne Nuc Med 06/25/21 04:38 Completed CV echo limited 9 3308 Routine Ultrasound 12/11/20 04:38 Completed CV echo wo/w cont rast [id number] Routine Ultrasound 12/14/20 09:15 [place] [id number] Routin e Ultrasound 12/14/20 15:13 Completed Pending at discharge Category Date Time Status Immunochemical Fe julia OCB Routine Lab 12/14/20 15:15 Uncollected Vitals: Last Vital Signs Temp 97.6 F 12/17/20 11:47 Pulse 103 H 12/17/20 11:47 Resp 28 H 12/17/20 11:47 BP 125/75 12/17/20 11:47 Pulse Ox 81 L 12/17/20 11:47 Discharge Plan Discharge Patient Disposition: Hospice - Medical Facility Condition: Stable Prescriptions: Discontinued bisacodyl 10 mg suppository 10 mg WI DAILY PRN (Reason: Constipation) RF: 0 magnesium hydroxide [Milk of Magnesia] 400 mg/5 mL suspension 30 ml PO DAILY PRN (Reason: Constipation) RF: 0 levalbuterol HCl 1.25 mg/3 mL solution for nebulization 1.25 mg inhalation Q6H PRN (Reason: Shortness Of Breath Or Wheezing) RF: 0 albuterol sulfate [Ventolin HFA] 90 mcg/actuation HFA aerosol inhaler 2 puff inhalation Q6H RF: 0 ondansetron HCl [Zofran] 4 mg tablet 4 mg PO Q8H PRN (Reason: Nausea) RF: 0 acetaminophen [Tylenol] 325 mg capsule 650 mg PO Q6H PRN (Reason: Pain, Mild) RF: 0 cyclobenzaprine 5 mg tablet 5 mg PO Q8H PRN (Reason: Muscle Spasm) RF: 0 multivitamin Tablet 1 tab PO DAILY RF: 0 Trelegy Ellipta 100-62.5-25 mcg blister with device 1 inh inhalation DAILY@0900 RF: 0 cyanocobalamin (vitamin B-12) 1,000 mcg capsule 1,000 mcg PO DAILY@0900 RF: 0 gabapentin 300 mg capsule 300 mg PO TID@ RF: 0 calcium carbonate-vitamin D3 600 mg(1,500mg) -400 unit capsule 2 cap PO DAILY@0900 RF: 0 metoprolol tartrate 25 mg tablet 25 mg PO BID RF: 0 tramadol 50 mg tablet 50 mg PO TID@,15, RF: 0 prochlorperazine maleate 5 mg Tablet 5 - 10 mg PO Q4H PRN (Reason: Nausea) RF: 0 tramadol 50 mg Tablet 50 mg PO TID PRN (Reason: Pain) RF: 0 tamsulosin 0.4 mg Capsule 0.4 mg PO DAILY@1999 RF: 0 oxycodone 5 mg Tablet 5 mg PO Q6H PRN (Reason: Pain) RF: 0 oxycodone 5 mg Tablet 10 mg PO DAILY PRN (Reason: Pain) RF: 0 Discharge Orders: Discharge Order (Routine); Ordered 12/17/20 Ordered By: Wilian Aguilar Discharge Diet: As Directed Patient Instructions: Hospice Care (GEN) Discharge Attestations Time Spent in Discharge Care*: less than 30 min Quality Metrics Clinical Quality Measures During this hospital stay, did patient experience: None Coding Level of Care Code Acute Chg DC note Diagnoses Sudden cardiac arrest I46.9 Sepsis A41.9 UTI (urinary tract infection) N39.0 ONEL (acute kidney injury) N17.9 Hyperkalemia E87.5 Respiratory failure, chronic J96.10 SVT (supraventricular tachycardia) I47.1 Acute respiratory failure J96.00 Vaginal cancer C52 Acute encephalopathy G93.40
--- NOTE | 2020-12-17 14:17 | PC.NURSE ---
Report called to [facility] at [facility] at this time.
[2020-12-17] MEDS: morphine 10 mg/0.5 mL oral liq UD SUBLINGUAL (14:57)
--- NOTE | 2020-12-17 16:17 | PC.NURSE ---
Patient assisted to EMS stretcher to be taken to [facility] at this time. Daughter at bedside.
== END 2020-12-17 15:30 | disposition hospice, inpatient (51) | DRG 871 ==
LOC: ER 01:59 → CSU 03:27 → ICU 08:10 → MEDSURG 12-16 17:29
PROVIDERS: Internal Medicine; Admitting Provider Internal Medicine; Emergency Provider Emergency Medicine; PCP Family Medicine; Visit Provider Family Medicine
DX: A41.9 Sepsis, unspecified organism (principal); J18.9 Pneumonia, unspecified organism; J96.20 Acute and chronic respiratory failure, unspecified whether with hypoxia or hypercapnia; I46.9 Cardiac arrest, cause unspecified; N39.0 Urinary tract infection, site not specified; C78.02 Secondary malignant neoplasm of left lung; C78.01 Secondary malignant neoplasm of right lung; C79.51 Secondary malignant neoplasm of bone; M84.58XA Pathological fracture in neoplastic disease, other specified site, initial encounter for fracture; N17.9 Acute kidney failure, unspecified; E87.2 Acidosis; G93.40 Encephalopathy, unspecified; I47.1 Supraventricular tachycardia; J98.11 Atelectasis; C52 Malignant neoplasm of vagina; Z99.81 Dependence on supplemental oxygen; J43.9 Emphysema, unspecified; E03.9 Hypothyroidism, unspecified; I95.9 Hypotension, unspecified; I50.9 Heart failure, unspecified; G89.3 Neoplasm related pain (acute) (chronic); K21.9 Gastro-esophageal reflux disease without esophagitis; F17.210 Nicotine dependence, cigarettes, uncomplicated; F10.21 Alcohol dependence, in remission; E87.5 Hyperkalemia; Z66 Do not resuscitate
CPT/HCPCS: 36415; 36592; 36600; 51702; 70450; 71045; 71250; 71275; 74176; 77387; 77412; 78014; 80048; 80051; 80053; 80202; 81001; 82330; 82550; 82728; 82803; 82805; 83540; 83605; 83735; 83880; 84100; 84145; 84443; 84484; 85025; 85378; 85610; 86140; 86403; 87040; 87449; 93005; 93308; 93970; 94002; 94003; 94640; 94660; 94799; 96361; 96372; 96374; 99285; A9540; A9567; C1751; C8929; C9113; J0282; J0696; J1644; J1650; J1940; J2060; J2250; J2270; J2370; J2543; J2930; J3010; J3370; J3480; J3490; J7030; J7050; J7060; J7611; Q9956; Q9967